=== PATIENT | male | born 1965 | race African-American/Black ===

== ENCOUNTER → 2016-12-12 | Emergency (ER) | payer OTHER ==
[~2016-12-12] MED LIST: OXYCODONE/APAP 5/325MG COMBO TABLET ONE; OXYCODONE/APAP 5/325MG COMBO TABLET PO ONE; SODIUM CHLORIDE 500 ML IV STA; oxyCODONE HCL 5 MG TABLET ONE; oxyCODONE HCL 5 MG TABLET PO ONE
[2016-12-12 20:19] VITALS: BMI 33.9
--- NOTE | 2016-12-12 21:35 | PDOC ---
History of Present Illness - General Chief Complaint: Injury Stated Complaint: RT ANKLE INJURY Time Seen by Provider: 12/12/16 20:29 History Source: Patient, Significant Other Exam Limitations: No Limitations - History of Present Illness Initial Comments: 12/12/16 21:29 51yo Male patient w/ PmHx: HTN, DM, BPH, Chronic back pain, Sleep Apnea, Syncope , presents to ED c/o fall, head injury, right ankle pain. Patient states he ascended 3 flights of stairs to use a friends bathroom, when he got to the top of the stairs he passed out and fell. Patient c/o head injury and right ankle pain with swelling. He states this was not the first time "passing out" and that his doctors are aware. He has had a full cardiac work-up and was told his heart is weak per patient. He denies CP, Abd pain, Acute back pain, n/v/d, diff breathing, fever, confusion, disorientation, seizures or any other complaints at this time. Occurred: reports: just prior to arrival Severity: reports: moderate Pain Location: reports: head, lower extremity Method of Injury: Yes: fall Modifying Factors: improves with: pain medication, rest Loss of Consciousness: brief (seconds) Associated Symptoms (Fall): shortness of breath Past History - Travel Traveled outside of the country in the last 30 days: No Close contact w/someone who was outside of country & ill: No - Past Medical History Allergies/Adverse Reactions: Allergies Allergy/AdvReac Type Severity Reaction Status Date / Time No Known Allergies Allergy Verified 12/12/16 20:13 Home Medications: Ambulatory Orders Albuterol Sulfate [Proair Respiclick] 90 mcg IH DAILY 12/12/16 Amlodipine Besylate [Norvasc -] 10 mg PO DAILY 12/12/16 Aspirin [ASA -] 81 mg PO DAILY 12/12/16 Atorvastatin Ca [Lipitor] 10 mg PO HS 12/12/16 Budesonide/Formeterol Fumarate [SYMBICORT 160/4.5mcg -] 1 inh PO DAILY 12/12/16 Enalapril Maleate [Vasotec] 20 mg PO DAILY 12/12/16 Ibuprofen 800 mg PO Q8H PRN #15 tablet 12/12/16 Insulin Glargine,Hum.rec.anlog [Lantus Solostar PEN (NF)] 10 units SQ AM Metoprolol Succinate [Toprol Xl -] 25 mg PO BID 12/12/16 Oxycodone HCl 5 mg PO Q8H PRN #12 tablet MDD 3 tabs 12/12/16 Oxycodone HCl/Acetaminophen [Percocet 10-325 mg Tablet] 1 each PO Q6H PRN Tamsulosin HCl [Flomax] 0.4 mg PO DAILY 12/12/16 COPD: Yes Diabetes: Yes Disorders: (kidney disease) HTN: Yes Hypercholesterolemia: Yes - Immunization History Immunization Up to Date: Yes - Psycho/Social/Smoking Cessation Hx Suicidal Ideation: No Smoking History: Current every day smoker Have you smoked in the past 12 months: Yes Number of Cigarettes Smoked Daily: 20 Information on smoking cessation initiated: No Hx Alcohol Use: No Drug/Substance Use Hx: No Substance Use Type: None Trauma Specific PMHX - Complaint Specific PMHX Arthritis: No Back Injury: No Neck Injury: No Hx Sacro Iliac Joint Dysfunction: No Review of Systems - Review of Systems Able to Perform ROS?: Yes Is the patient limited Sammarinese proficient: No Constitutional: No: Chills, Fever Respiratory: Yes: Shortness of Breath, SOB with Exertion. No: Orthopnea, SOB at Rest, Stridor, Wheezing, Hemoptysis Cardiac (ROS): Yes: Syncope. No: Chest Pain, Edema, Lightheadedness, Palpitations, Chest Tightness ABD/GI: Yes: Abdominal Distended, Constipated. No: Diarrhea, Nausea, Poor Appetite, Poor Fluid Intake, Rectal Bleeding, Vomiting, Abdominal cramping : No: Dysuria, Flank Pain, Hematuria Musculoskeletal: Yes: Back Pain (Chronic), Joint Pain, Joint Swelling. No: Neck Pain Integumentary: Yes: Lumps (Hematoma to scalp). No: Bruising, Erythema, Rash Neurological: No: Headache, Seizure, Weakness, Dizziness All Other Systems: Reviewed and Negative *Physical Exam - Vital Signs Last Vital Signs Temp Pulse Resp BP Pulse Ox 98.2 F 57 L 18 129/89 97 12/12/16 20:11 12/12/16 20:11 12/12/16 20:11 12/12/16 20:11 12/12/16 20:11 - Physical Exam General Appearance: Yes: Nourished, Appropriately Dressed. No: Apparent Distress, Mild Distress, Moderate Distress, Severe Distress HEENT: positive: EOMI, LM, Normal ENT Inspection, Normal Voice, Symmetrical, TMs Normal, Pharynx Normal. negative: Pharyngeal Erythema, Tonsillar Exudate, Tonsillar Erythema, Nasal Congestion, Rhinorrhea, Sinus Tenderness, TM Bulging, TM Dull, TM Erythema, Thrush Neck: positive: Trachea midline, Supple. negative: Stridor, Lymphadenopathy (R) , Lymphadenopathy (L), Tender lateral, Tender midline Respiratory/Chest: positive: Lungs Clear, Normal Breath Sounds. negative: Chest Tender, Respiratory Distress, Accessory Muscle Use, Labored Respiration, Rapid RR, Rhonchi, Stridor, Wheezing Cardiovascular: positive: Bradycardia. negative: Edema, Murmur Gastrointestinal/Abdominal: positive: Normal Bowel Sounds, Soft, Distended. negative: Guarding, Rebound, Tenderness Musculoskeletal: positive: Normal Inspection. negative: CVA Tenderness, Vertebral Tenderness Extremity: positive: Normal Capillary Refill, Normal Range of Motion, Tender ( Right ankle/foot), Swelling. negative: Normal Inspection Integumentary: positive: Normal Color, Dry, Warm Neurologic: positive: experimental psychologist II-XII NML intact, Fully Oriented, Alert, Normal Mood/ Affect, Normal Response, Motor Strength 5/5 Procedures - Splinting Splint Location: Right: Ankle Pre-Proc Neuro Vasc Exam: normal Hand-Made Type: orthoglass Splint Type: No: Short Leg (Rt Ankle stirrup) Post-Proc Neuro Vasc Exam: normal Marino Bandage: 4" Sling: No Complications: No Post splint xray: No Good repositioning: No Progress: 12/12/16 23:47 Patient tolerated procedure well. ED Treatment Course - LABORATORY CBC & Chemistry Diagram: 12/12/16 21:05 12/12/16 21:45 - RADIOLOGY Radiology Studies Ordered: Category Date Time Status HEAD CT WITHOUT CONTRAST [CT] Stat CT Scan 12/12/16 21:06 Ordered ANKLE & FOOT-RIGHT* [RAD] Stat Radiology 12/12/16 21:06 Ordered CHEST PA & LAT [RAD] Stat Radiology 12/12/16 21:06 Ordered *DC/Admit/Observation/Transfer Diagnosis at time of Disposition: Ankle fracture, right Qualifiers: Encounter type: initial encounter Fracture type: closed Qualified Code(s): S82.891A - Other fracture of right lower leg, initial encounter for closed fracture Head injury Qualifiers: Encounter type: initial encounter Qualified Code(s): S09.90XA - Unspecified injury of head, initial encounter Fall Qualifiers: Encounter type: initial encounter Qualified Code(s): W19.XXXA - Unspecified fall, initial encounter - Discharge Dispostion Disposition: HOME Condition at time of disposition: Stable Admit: No - Prescriptions Prescriptions: Ibuprofen 800 mg PO Q8H PRN #15 tablet PRN Reason: Mild Pain Oxycodone HCl 5 mg PO Q8H PRN #12 tablet MDD 3 tabs PRN Reason: Severe Pain - Referrals Referrals: Keaton Agudelo MD [Staff Physician] - - Patient Instructions Printed Discharge Instructions: DI for Ankle Fracture, DI for Closed Head Injury, How to Prevent Falls Additional Instructions: FOLLOW UP WITH DR. AGUDELO (ORTHOPEDIST) THIS WEEK. CALL TO SCHEDULE APPOINTMENT. TAKE MEDICATIONS PRESCRIBED. DO NOT DRIVE, DRINK ALCOHOL OR OPERATE HEAVY MACHINERY WHILE TAKING OXYCODONE. KEEP SPLINT APPLIED UNTIL SEEN BY SPECIALIST. APPLY COLD COMPRESS TO AFFECTED AREA EVERY 3-4 HOURS ON AND OFF FOR 10 MIN. Print Language: STATELESS - Post Discharge Activity Work/School Note: Back to Work
--- NOTE | 2016-12-12 21:54 | PDOC ---
*Physical Exam - Vital Signs Last Vital Signs Temp Pulse Resp BP Pulse Ox 98.2 F 57 L 18 129/89 97 12/12/16 20:11 12/12/16 20:11 12/12/16 20:11 12/12/16 20:11 12/12/16 21:05 ED Treatment Course - LABORATORY CBC & Chemistry Diagram: 12/12/16 21:05 12/12/16 21:45 Medical Decision Making - Medical Decision Making 12/12/16 21:53 agree with care from SLADE Powell *DC/Admit/Observation/Transfer Diagnosis at time of Disposition: Ankle fracture, right, Head injury, Fall - Prescriptions Prescriptions: Ibuprofen 800 mg PO Q8H PRN #15 tablet PRN Reason: Mild Pain Oxycodone HCl 5 mg PO Q8H PRN #12 tablet MDD 3 tabs PRN Reason: Severe Pain - Referrals Referrals: Keaton Agudelo MD [Staff Physician] - - Patient Instructions Printed Discharge Instructions: DI for Ankle Fracture, How to Prevent Falls, DI for Closed Head Injury Additional Instructions: FOLLOW UP WITH DR. AGUDELO (ORTHOPEDIST) THIS WEEK. CALL TO SCHEDULE APPOINTMENT. TAKE MEDICATIONS PRESCRIBED. DO NOT DRIVE, DRINK ALCOHOL OR OPERATE HEAVY MACHINERY WHILE TAKING OXYCODONE. KEEP SPLINT APPLIED UNTIL SEEN BY SPECIALIST. APPLY COLD COMPRESS TO AFFECTED AREA EVERY 3-4 HOURS ON AND OFF FOR 10 MIN. Print Language: ITALIAN - Post Discharge Activity Work/School Note: Back to Work
[2016-12-12 22:09] LABS: BASOPHIL 0.8 % (0-2.0); EOSINOPHIL 3.9 % (0-4.5); MCH 29.1 pg (25.7-33.7); MEAN CELL VOLUME 85.5 fl (80-96); NEUTROPHILS 66.3 % (42.8-82.8); PLATELET COUNT 205 K/MM3 (134-434); RDW 13.5 % (11.9-15.9); WHITE BLOOD COUNT 8.6 K/mm3 (4.0-10.0)
[2016-12-12 22:09] LABS: INR 1.06 (0.82-1.09); PROTHROMBIN TIME (PATIENT) 11.7 SEC (9.98-11.88)
[2016-12-12 22:11] LABS: URINE APPEARANCE CLEAR; URINE BILIRUBIN NEGATIVE (NEGATIVE); URINE BLOOD NEGATIVE (NEGATIVE); URINE COLOR LTYELLOW; URINE GLUCOSE (UA) NEGATIVE (NEGATIVE); URINE KETONE NEGATIVE (NEGATIVE); URINE NITRITE NEGATIVE (NEGATIVE); URINE PROTEIN NEGATIVE (NEGATIVE); URINE UROBILINOGEN NEGATIVE E.U./dl (0.2-1.0)
[2016-12-12 22:12] LABS: ACTIVATED PTT 30.2 SECONDS (26.9-34.4)
[2016-12-12 22:25] LABS: URINE LEUK ESTERASE 1+ (NEGATIVE)
[2016-12-12 22:27] LABS: URINE RBC 1 /hpf (0-3); URINE WBC 14 /hpf (3-5)
[2016-12-12 22:54] LABS: ALBUMIN 3.6 g/dl (3.4-5.0); ANION GAP 9 (8-16); BILIRUBIN,TOTAL 0.6 mg/dL (0.2-1.0); CALCIUM 8.5 mg/dL (8.5-10.1); CO2 26 mmol/L (21-32); CREATININE 1.4 mg/dL (0.7-1.3); GLUCOSE,RANDOM 165 mg/dL (74-106); SGPT/ALT 39 U/L (12-78); TOT PROT 6.5 g/dl (6.4-8.2)
[2016-12-12 22:56] LABS: ALK PHOS 88 U/L (45-117); TROPONIN I < 0.02 ng/ml (0.00-0.05)
[2016-12-12 22:58] LABS: SGOT/AST 18 U/L (15-37)
[2016-12-13 00:35] VITALS: BP 121/73; PULSE 59; TEMP 98.3
--- NOTE | 2016-12-14 11:23 | EKG ---
Test Reason : Blood Pressure : / mmHG Vent. Rate : 062 BPM Atrial Rate : 062 BPM P-R Int : 166 ms QRS Dur : 092 ms QT Int : 396 ms P-R-T Axes : 060 036 061 degrees QTc Int : 401 ms NORMAL SINUS RHYTHM NORMAL ECG NO PREVIOUS ECGS AVAILABLE Confirmed by PARKER RICH MD ([id number]) on 12/14/2016 11:22:41 AM Referred By: Confirmed By:PARKER RICH MD
== END | disposition home or self-care (01) ==
LOC: JER 20:07
PROC: 3E0337Z Introduction of Electrolytic and Water Balance Substance into Peripheral Vein, Percutaneous Approach (ICD-10-PCS; principal; 2016-12-12)
PROC: 2W3QX1Z Immobilization of Right Lower Leg using Splint (ICD-10-PCS; 2016-12-12)
DX: S82.891A Other fracture of right lower leg, initial encounter for closed fracture (principal); S09.8XXA Other specified injuries of head, initial encounter; W10.8XXA Fall (on) (from) other stairs and steps, initial encounter; Y93.89 Activity, other specified; Y92.098 Other place in other non-institutional residence as the place of occurrence of the external cause; I10 Essential (primary) hypertension; E11.9 Type 2 diabetes mellitus without complications; Z79.4 Long term (current) use of insulin; N40.0 Benign prostatic hyperplasia without lower urinary tract symptoms; M54.89 Other dorsalgia; G47.39 Other sleep apnea; F51.8 Other sleep disorders not due to a substance or known physiological condition
CPT/HCPCS: 29515; 36415; 70450-TC; 71020-TC; 72125-TC; 73610-TC-RT; 73630-TC-RT; 80053; 81003; 81015; 82550; 82553; 84484; 85025; 85610; 85730; 93005; 93010; 96360; 99283-25

== ENCOUNTER 2018-06-02 07:52 | Inpatient (IN) | payer OTHER ==
--- NOTE | 2018-06-02 07:57 | PDOC ---
Attending Attestation - Resident Resident Name: DesmondGage - ED Attending Attestation I have performed the following: I have examined & evaluated the patient, The case was reviewed & discussed with the resident, I agree w/resident's findings & plan, Exceptions are as noted - HPI HPI: 06/02/18 08:50 52y M history of diabetes, hypertension, CAD, CKD, hyperlipidemia presents with a complaint of syncope. Patient states this morning he syncopized - does not recall the circumstances prior notes that he has had frequent episodes of syncope the past year. Patient notes that sometimes he does feel lightheaded, a flushing sensation in his body prior to syncopized in. He states that he has had a workup in the past including Holter monitor. he denies any chest pain, nausea, vomiting, shortness of breath, abdominal pain, back pain, neck pain, numbness, tingling, weakness . currently endorses a headache where he hit his head. The patient was placed on monitoring specialist upon arrival, during his evaluation. Had a brief run of nonsustained V. tach (27 beats) - he also appears to have A. fib on his EKG which is new. he was given amiodarone 150mg he was placed on pacer pads/defibrillator will obtain CT head differential includes metabolic derangement, intrinsic cardiac disease [facility] - Physicial Exam PE: 06/02/18 10:00 GENERAL: The patient is awake, alert, and fully oriented, Nontoxic - in no acute distress. HEAD: Normocephalic, mild diffuse tenderness to the posterior scalp EYES: extraocular movements intact, sclera anicteric, conjunctiva clear. ENT: Normal voice, Moist mucous membranes. NECK: Normal range of motion, supple LUNGS: Breath sounds equal, clear to auscultation bilaterally. No wheezes, no rhonchi, no rales. HEART: Regular rate and rhythm, normal S1 and S2 without murmur, rub or gallop. ABDOMEN: Soft, nontender, normoactive bowel sounds. No guarding, no rebound. . No CVA tenderness EXTREMITIES: Normal range of motion, no edema. No clubbing or cyanosis. No cords, erythema, or tenderness. NEUROLOGICAL: No facial assymetry, Normal speech, PSYCH: Normal mood, normal affect. SKIN: Warm, Dry, normal turgor, - Critical Care Time Total Critical Care Time: 45 Critical Care Statement: The care of this patient involved high complexity decision making to prevent further life threatening deterioration of the patient 's condition and/or to evaluate & treat vital organ system(s) failure or risk of failure. - Medical Decision Making 06/02/18 11:40 The patient's blood work was reviewed it is unremarkable, the patient's CT head negative for acute process. Has been stable since receiving amiodarone no further episodes of nonsustained VT This was discussed with cardiology was recommended and metoprolol recommended not starting amiodarone drip. Will make the patient for further management of VT. Heart Score/ECG Review - ECG Impressions Comment:: 06/02/18 09:07 Twelve-lead EKG was performed and reviewed by me. EKG performed June 02 7:57 Irregularly irregular, rate of [address] changes suggestive of acute ischemia Impression: Atrial fibrillation
[2018-06-02 08:35] LABS: BASO % 0.8 % (0-2.0); EOS % 2.9 % (0-4.5); HEMATOCRIT 41.3 % (35.4-49); HEMOGLOBIN 14.6 GM/dL (11.7-16.9); LYMPH % 16.6 % (8-40); MCH 29.8 pg (25.7-33.7); MCHC 35.3 g/dl (32.0-35.9); MEAN CELL VOLUME 84.2 fl (80-96); MEAN PLT VOLUME 8.2 fl (7.5-11.1); NEUT % 68.7 % (42.8-82.8); PLATELET COUNT 238 K/MM3 (134-434); RDW 13.5 % (11.9-15.9); WHITE BLOOD COUNT 9.1 K/mm3 (4.0-10.0)
[2018-06-02 08:36] LABS: URINE APPEARANCE CLEAR; URINE BILIRUBIN NEGATIVE (<2.0 mg/dL); URINE COLOR STRAW; URINE GLUCOSE (UA) 2+ (NEGATIVE); URINE KETONE NEGATIVE (NEGATIVE); URINE LEUK ESTERASE NEGATIVE (NEGATIVE); URINE NITRITE NEGATIVE (NEGATIVE); URINE PROTEIN NEGATIVE (NEGATIVE); URINE UROBILINOGEN NEGATIVE mg/dL (0.2-1.0)
[2018-06-02 08:43] LABS: INR 0.98 (0.83-1.09); PROTHROMBIN TIME (PATIENT) 11.6 SEC (9.7-13.0)
[2018-06-02] MEDS ORDERED: AMIODARONE HCL 150 MG/3 ML VIAL IVPUSH ONE (08:44)
[2018-06-02 08:45] VITALS: BMI 33.9
[2018-06-02] MEDS ORDERED: AMIODARONE HCL 150 MG/3 ML VIAL ONE (08:47)
[2018-06-02 08:54] LABS: ALBUMIN 3.5 g/dl (3.4-5.0); ALK PHOS 115 U/L (45-117); ANION GAP 8 MMOL/L (8-16); BILIRUBIN,TOTAL 0.4 mg/dL (0.2-1); BLOOD UREA NITROGEN 17 mg/dL (7-18); CALCIUM 8.3 mg/dL (8.5-10.1); CHLORIDE 102 mmol/L (98-107); CO2 23 mmol/L (21-32); CREATININE 1.3 mg/dL (0.55-1.3); GLUCOSE,RANDOM 240 mg/dL (74-106); POTASSIUM 4.4 mmol/L (3.5-5.1); SGOT/AST 18 U/L (15-37); SGPT/ALT 27 U/L (13-61); SODIUM 133 mmol/L (136-145); TOT PROT 6.8 g/dl (6.4-8.2)
--- NOTE | 2018-06-02 08:54 | PDOC ---
History of Present Illness - General Stated Complaint: IRREGULAR HEART BEAT Time Seen by Provider: 06/02/18 07:53 - History of Present Illness Initial Comments: 06/02/18 08:23 52 yo M with h/o HTN, DM, HLD, CKD-stage II, CAD, ND (2001), BIBA with syncope and palpitations. Patient reports multiple episodes of LOC with no identifiable triggers or alleviators x 1 week. BIBA this AM following syncopal event in hallway outside apartment room in hallway. Does not recall events prior to LOC. States that his found him on ground. Reports multiple unprovoked episodes of syncope this year. Now with posterior headache. + increased SOB x 1 week, with increased nocturnal SOB, and exertional SOB. Also endorses intermittent "heart fluttering," and palpitations randomly x 1 year, with no identifiable triggers, typically lasting seconds. Does not recall name of home care chaplain he has seen 8 months ago. Reports h/o holter monitor testing, but does not recall results. Patient denies vision change, tinnitus, hearing loss, neck stiffness/neck pain, palpitations, N/V, F/C, CP, urinary complaints, abdominal pain, diarrhea, constipation, lightheadedness, weakness, sensory changes. PMHx: as noted above. ND 2001. Denies stent placement, CABG. Denies h/o PE/DVT. ROS: as noted SHx: IVDA Allergies: NKDA Past History - Past Medical History Allergies/Adverse Reactions: Allergies Allergy/AdvReac Type Severity Reaction Status Date / Time No Known Allergies Allergy Verified 06/02/18 08:34 Home Medications: Ambulatory Orders Albuterol Sulfate Inhaler - [Ventolin Hfa Inhaler -] 1 - 2 inh PO Q4H PRN Amlodipine Besylate [Norvasc -] 10 mg PO DAILY 06/02/18 Aspirin [ASA -] 81 mg PO DAILY 06/02/18 Atorvastatin Calcium [Lipitor] 10 mg PO DAILY 06/02/18 Budesonide/Formeterol Fumarate [SYMBICORT 80/4.5mcg -] 1 inh PO BID 06/02/18 Cholecalciferol (Vitamin D3) [Vitamin D3 -] 50,000 unit PO WEEKLY 06/02/18 Docusate Sodium [Colace -] 100 mg PO BID 06/02/18 Enalapril Maleate [Vasotec -] 10 mg PO BID 06/02/18 Insulin Degludec [Tresiba Flextouch U-100] 10 unit SQ HS 06/02/18 Metoprolol Tartrate [Lopressor] 50 mg PO BID 06/02/18 Oxycodone HCl/Acetaminophen [Endocet 10-325 mg Tablet] 1 each PO BID 06/02/18 Polyethylene Glycol 3350 17 gm PO DAILY 06/02/18 Sennosides [Senna] 1 tab PO HS 06/02/18 Tamsulosin HCl [Flomax] 0.4 mg PO HS 06/02/18 Tizanidine HCl 2 mg PO BID 06/02/18 Zolpidem Tartrate [Ambien] 10 mg PO HS 06/02/18 COPD: Yes Diabetes: Yes Disorders: (kidney disease) HTN: Yes Hypercholesterolemia: Yes - Immunization History Immunization Up to Date: Yes - Suicide/Smoking/Psychosocial Hx Smoking History: Current every day smoker Have you smoked in the past 12 months: Yes Number of Cigarettes Smoked Daily: 20 Hx Alcohol Use: No Drug/Substance Use Hx: No Substance Use Type: None Review of Systems - Review of Systems Comments:: 06/02/18 09:08 GENERAL/CONSTITUTIONAL: No fever or chills. No weakness. HEAD, EYES, EARS, NOSE AND THROAT: No change in vision. No ear pain or discharge. No sore throat. CARDIOVASCULAR: + palpitations. No chest pain or shortness of breath RESPIRATORY: No cough, wheezing, or hemoptysis. GASTROINTESTINAL: No nausea, vomiting, diarrhea or constipation. GENITOURINARY: No dysuria, frequency, or change in urination. MUSCULOSKELETAL: No joint or muscle swelling or pain. No neck or back pain. SKIN: No rash NEUROLOGIC: + Lightheadedness. No headache, vertigo, loss of consciousness, or change in strength/sensation. ENDOCRINE: No increased thirst. No abnormal weight change HEMATOLOGIC/LYMPHATIC: No anemia, easy bleeding, or history of blood clots. ALLERGIC/IMMUNOLOGIC: No hives or skin allergy. *Physical Exam - Physical Exam Comments: 06/02/18 09:17 GENERAL: Awake, alert, and fully oriented, in no acute distress HEAD: + Right sided occipital scalp hematoma, with absent lac. normocephalic EYES: PERRLA, EOMI, sclera anicteric, conjunctiva clear ENT: Auricles normal inspection, hearing grossly normal, nares patent, oropharynx clear without exudates. Moist mucosa NECK: Normal ROM, supple, no lymphadenopathy, JVD, or masses LUNGS: No distress, speaks full sentences, clear to auscultation bilaterally HEART: Regular rate and irregular rhythm, normal S1 and S2, no murmurs, rubs or gallops, peripheral pulses normal and equal bilaterally. ABDOMEN: Soft, nontender, normoactive bowel sounds. No guarding, no rebound. No masses EXTREMITIES : Normal inspection, Normal range of motion, no edema. No clubbing or cyanosis. NEUROLOGICAL: Cranial nerves II through XII grossly intact. Normal speech, normal gait, no focal sensorimotor deficits SKIN: Warm, Dry, normal turgor, no rashes or lesions noted Heart Score/ECG Review - History History: Slightly suspicious - Electrocardiogram EKG: Non specific repolarization disturbance - Age Age: 45-65 - Risk Factors Risk Factors Heart Score: Yes Hx Hypercholesterolemia, Yes Hx Hypertension, Yes Hx Diabetes, Yes Positive family hx of cardiac disease, Yes Hx Obesity Based on the list above the patient has:: >/=3 risk factors or Hx atherosclerotic disease - Troponin Troponin: </= normal limit - Score Heart Score - Total: 4 ED Treatment Course - LABORATORY CBC & Chemistry Diagram: 06/02/18 08:20 06/02/18 08:20 - RADIOLOGY Radiology Studies Ordered: Category Date Time Status CXRPORT [CHEST X-RAY PORTABLE*] [RAD] Stat Radiology 06/02/18 07:54 Ordered Medical Decision Making - Medical Decision Making 06/02/18 08:58 52 yo M with h/o HTN, DM, HLD, CKD-stage II, CAD, ND (2001), BIBA with syncope and palpitations. VSS, AF, A&Ox3, GCS 15. Will Cardio exam with irregular rhythm , physical exam otherwise unremarkable. CTH r/o intracranial hemorrhage, hematoma, skull frx. C-spine neg per NEXUS.No evidence of basilar skull fracture. Will assess for cardiac dysarrtyhmias, hypoglycemia, electrolyte abnml , metabolic and toxic derangements, acid-base disturbances, and infection. Ed Course: CBC,CMP, CARDIAC SD. BNP EKG, CXR EKG: A-fib, HR absent JOSE, STD. N Prior EKG ( 12-12-16) with NSR., rate 62. Patient with run of stable, asymptomatic, monomorphic V-tach 08:27 AM for 27 beats. Amiodarone 150 mg heart score 4 06/02/18 09:[address] Ruiz cardiology transition specialist CBC: Unremarkable 06/02/18 09:03 BUN/CR: 17/1.3 K+ : 4.4 Discussed patient with cardiology, . will give Metoprolol 20 mg. 06/02/18 09:33 Trop: Neg 06/02/18 09:34 BNP: 308 06/02/18 10:03 ChadsVasc2: 3 06/02/18 10:23 CXR: No acute pathology 06/02/18 11:[address] Cormier. Admit tele. *DC/Admit/Observation/Transfer Diagnosis at time of Disposition: V-tach, Atrial fibrillation, new onset, Syncope and collapse - Discharge Dispostion Decision to Admit order: Yes - Referrals - Patient Instructions - Post Discharge Activity
[2018-06-02 09:06] LABS: N-TERMINAL BNP 308.2 pg/ml (5-125)
[2018-06-02] MEDS ORDERED: ACETAMINOPHEN INJECTION 100 ML IVPB ONE (09:15)
[2018-06-02] MEDS ORDERED: METOPROLOL TARTRATE 25 MG TABLET (FP) PO ONE (09:16)
[2018-06-02] MEDS ORDERED: METOPROLOL TARTRATE 50 MG TABLET (FP) PO ONE (09:29)
[2018-06-02] MEDS ORDERED: METOPROLOL TARTRATE 50 MG TABLET (FP) ONE (09:31)
--- NOTE | 2018-06-02 10:09 | CON.CARD ---
Consult Consult Specialty:: Cardiology Referred by:: Obed Thornton MD Reason for Consultation:: Monomorphic VT, afib, syncope - History of Present Illness Chief Complaint: Syncope History of Present Illness: 52y M history of diabetes, hypertension, CAD s/p ID 2001, CKD II, hyperlipidemia , fam h/o premature CAD presents with a complaint of syncope, MARTIN and palpitations, reports previous episodes this year, this time preceded by lightheaded, a flushing sensation in his body prior to syncope. He states that he has had a workup in the past including Holter monitor. He reports increased MARTIN and orthopnea, denies any chest pain, nausea, vomiting, PND or LE edema. The patient was placed on groundwater monitoring technician upon arrival, during his evaluation. Had a brief run of monomorphic V. tach (27 beats) - he also appears to have A. fib on his EKG which is new. he was given amiodarone 150mg, reports medication compliance. - History Source History Provided By: Patient Limitations to Obtaining History: No Limitations - Alcohol/Substance Use Hx Alcohol Use: No - Smoking History Smoking history: Current every day smoker Have you smoked in the past 12 months: Yes Aproximately how many cigarettes per day: 20 Home Medications - Allergies Allergies/Adverse Reactions: Allergies Allergy/AdvReac Type Severity Reaction Status Date / Time No Known Allergies Allergy Verified 06/02/18 08:34 - Home Medications Home Medications: Ambulatory Orders Albuterol Sulfate Inhaler - [Ventolin Hfa Inhaler -] 1 - 2 inh PO Q4H PRN Amlodipine Besylate [Norvasc -] 10 mg PO DAILY 06/02/18 Aspirin [ASA -] 81 mg PO DAILY 06/02/18 Atorvastatin Calcium [Lipitor] 10 mg PO DAILY 06/02/18 Budesonide/Formeterol Fumarate [SYMBICORT 80/4.5mcg -] 1 inh PO BID 06/02/18 Cholecalciferol (Vitamin D3) [Vitamin D3 -] 50,000 unit PO WEEKLY 06/02/18 Docusate Sodium [Colace -] 100 mg PO BID 06/02/18 Enalapril Maleate [Vasotec -] 10 mg PO BID 06/02/18 Insulin Degludec [Tresiba Flextouch U-100] 10 unit SQ HS 06/02/18 Metoprolol Tartrate [Lopressor] 50 mg PO BID 06/02/18 Oxycodone HCl/Acetaminophen [Endocet 10-325 mg Tablet] 1 each PO BID 06/02/18 Polyethylene Glycol 3350 17 gm PO DAILY 06/02/18 Sennosides [Senna] 1 tab PO HS 06/02/18 Tamsulosin HCl [Flomax] 0.4 mg PO HS 06/02/18 Tizanidine HCl 2 mg PO BID 06/02/18 Zolpidem Tartrate [Ambien] 10 mg PO HS 06/02/18 Family Disease History - Family Disease History Family Disease History: Heart Disease: Brother (CABG in 30s) Review of Systems - Review of Systems Cardiovascular: reports: Palpitations, Shortness of Breath Vital Signs: Vital Signs Temperature 98.5 F 06/02/18 07:53 Pulse Rate 60 06/02/18 09:38 Respiratory Rate 17 06/02/18 09:38 Blood Pressure 135/84 06/02/18 09:38 O2 Sat by Pulse Oximetry (%) 96 06/02/18 09:38 Constitutional: Yes: No Distress, Calm Neck: Yes: Supple Respiratory: Yes: Regular, CTA Bilaterally Gastrointestinal: Yes: Normal Bowel Sounds, Soft Cardiovascular: Yes: Regular Rate and Rhythm JVD: No Carotid Bruit: No Heart Sounds: Yes: S1, S2 Edema: No - Other Data Labs, Other Data: CBC, BMP 06/02/18 08:20 06/02/18 08:20 INR, PTT INR 0.98 (0.83-1.09) 06/02/18 08:20 Troponin, BNP 06/02/18 08:20 Troponin I < 0.02 B-Natriuretic Peptide 308.2 H Troponin, BNP 06/02/18 08:20 Troponin I < 0.02 B-Natriuretic Peptide 308.2 H Afib @ 69 QTc 410 msec Tele: 27 beat Monomorphic VT Imaging - Results Chest X-ray: Report Reviewed (NAD) Problem List - Problems (1) Coronary artery disease Code(s): I25.10 - ATHSCL HEART DISEASE OF [place] CORONARY ARTERY W/O ANG PCTRS Qualifiers: Coronary Disease-Associated Artery/Lesion type: [place] artery [place] vs. transplanted heart: [place] heart Associated angina: without angina Qualified Code(s): I25.10 - Atherosclerotic heart disease of [place] coronary artery without angina pectoris (2) Old myocardial infarction Code(s): I25.2 - OLD MYOCARDIAL INFARCTION (3) Atrial fibrillation, new onset Code(s): I48.91 - UNSPECIFIED ATRIAL FIBRILLATION (4) Syncope and collapse Code(s): R55 - SYNCOPE AND COLLAPSE (5) V-tach Code(s): I47.2 - VENTRICULAR TACHYCARDIA Assessment/Plan 1. Recurrent syncope, etiology to be determined 2. Newly diagnosed afib [id number] 3. CAD h/o ID 4. Monomorphic VT suspect scar VT 5. HTN heart disease 6. Hyperlipidemia 7. Type 2 DM 8. CKD II P:1. Ruling out for ID, echo to assess ventricular and valve fxn, check orthostatic VS, if LVEF<35% will be candidate for ICD 2. Continue Lipitor 10 qd, vasotec 10 bid, Lopressor 50 bid 3. Change ASA to Eliquis 5 bid given elevated risk score 4. Further recommendations to follow, thank you for consultative opportunity
[2018-06-02] MEDS ORDERED: ACETAMINOPHEN 1000 MG/100 ML VIAL (NON FORMULARY) IVPB ONE (10:29)
--- NOTE | 2018-06-02 12:10 | EKG ---
Test Reason : Blood Pressure : / mmHG Vent. Rate : 071 BPM Atrial Rate : 192 BPM P-R Int : 000 ms QRS Dur : 090 ms QT Int : 378 ms P-R-T Axes : 000 037 059 degrees QTc Int : 410 ms ATRIAL FIBRILLATION ABNORMAL ECG WHEN COMPARED WITH ECG OF 12-DEC-2016 21:03, ATRIAL FIBRILLATION HAS REPLACED SINUS RHYTHM Confirmed by CINDY PEDERSON MD ([id number]) on 06/02/2018 12:10:18 PM Referred By: Confirmed By:CINDY PEDERSON MD
--- NOTE | 2018-06-02 13:20 | HP ---
CHIEF COMPLAINT: Syncope PCP: Dr Va Galindo Name Plate Stamping Machine Operator: Dr Karishma Wright- [facility] HISTORY OF PRESENT ILLNESS: Pt is a pleasant 52 y/o gentleman with a significant past medical history of DM , HLD, CKD Stage II, and [place] (2001) who presented to [facility] after experiencing a syncopal episode this am. Per pt and carlose at bedside, pt was found in the hallway of his house by heaven. Pt endorses that he has experienced loss of consciousness numerous times this past year which are usually preceded by palpitations and lightheadedness though this recent episode was not. Sometimes these episodes are followed by urinary/bowel incontinence. Pt states when he begins to feel lightheaded and experience palpitations, he squats or sits down and this seems to assuage his symptoms. Furthermore, pt reports that sometimes his episodes of syncope are preceded by convulsions witnessed by bystanders. Endorses increasing SOB x 1 week and cough productive of whitish, foamy sputum. States he sometimes wakes up at night gasping for air , uses 2 pillows to sleep. In addition, he endorses a recent sinus infection productive of green mucous. Denies nausea, vomiting, or fever. ER course was notable for: (1) CT C-Spine--> C3-C4 central Canal stenosis suggestive of idiopathic skeletal hyperostosis. No fracture seen. (2) EKG--> AFIB @ 69 QTc 410 msec, Tele 27 beat monomorphic VT (3) Given amiodarone 150mg in ED Recent Travel: PAST MEDICAL HISTORY: per HPI. Cardiac Cath in 2013 " Damage Right Chamber?" PAST SURGICAL HISTORY: incarcerated Hernia Repair. Social History: Smokin Pack per day Alcohol: Denies Drugs: Denies Family History: Father--> [place] in 60's, Brother M.I in 40's Allergies denies No Known Allergies Allergy (Verified 06/02/18 08:34) HOME MEDICATIONS: Home Medications Medication Instructions Recorded Albuterol Sulfate Inhaler - 1 - 2 inh PO Q4H PRN 06/02/18 [Ventolin Hfa Inhaler -] Amlodipine Besylate [Norvasc -] 10 mg PO DAILY 06/02/18 Aspirin [ASA -] 81 mg PO DAILY 06/02/18 Atorvastatin Calcium [Lipitor] 10 mg PO DAILY 06/02/18 Budesonide/Formeterol Fumarate 1 inh PO BID 06/02/18 [SYMBICORT 80/4.5mcg -] Cholecalciferol (Vitamin D3) 50,000 unit PO WEEKLY 06/02/18 [Vitamin D3 -] Docusate Sodium [Colace -] 100 mg PO BID 06/02/18 Enalapril Maleate [Vasotec -] 10 mg PO BID 06/02/18 Insulin Degludec [Tresiba 10 unit SQ HS 06/02/18 Flextouch U-100] Metoprolol Tartrate [Lopressor] 50 mg PO BID 06/02/18 Oxycodone HCl/Acetaminophen 1 each PO BID 06/02/18 [Endocet 10-325 mg Tablet] Polyethylene Glycol 3350 17 gm PO DAILY 06/02/18 Sennosides [Senna] 1 tab PO HS 06/02/18 Tamsulosin HCl [Flomax] 0.4 mg PO HS 06/02/18 Tizanidine HCl 2 mg PO BID 06/02/18 Zolpidem Tartrate [Ambien] 10 mg PO HS 06/02/18 REVIEW OF SYSTEMS CONSTITUTIONAL: Absent: fever, chills, diaphoresis, generalized weakness, malaise, loss of appetite, weight change HEENT: PRESENT: visual changes CARDIOVASCULAR: PRESENT: syncope, palpitations, irregular heart rate, lightheadedness RESPIRATORY: PRESENT: cough, shortness of breath, dyspnea with exertion, orthopnea GASTROINTESTINAL:rusty, hemopty Absent: abdominal pain, abdominal distension, nausea, vomiting, diarrhea, constipation, melena, hematochezia GENITOURINARY: Absent: dysuria, frequency, urgency, hesitancy, hematuria, flank pain, genital pain MUSCULOSKELETAL: Absent: myalgia, arthralgia, joint swelling, back pain, neck pain SKIN: Absent: rash, itching, pallor HEMATOLOGIC/IMMUNOLOGIC: Absent: easy bleeding, easy bruising, lymphadenopathy, frequent infections ENDOCRINE: Absent: unexplained weight gain, unexplained weight loss, heat intolerance, cold intolerance NEUROLOGIC: PRESENT: headache, focal weakness, dizziness, seizure, bladder or bowel incontinence PSYCHIATRIC: PRESENT depression PHYSICAL EXAMINATION Vital Signs - 24 hr 06/02/18 06/02/18 06/02/18 07:53 08:50 09:38 Temperature 98.5 F Pulse Rate 75 Pulse Rate [ 63 60 Left Radial] Respiratory 20 21 H 17 Rate Blood Pressure 152/75 Blood Pressure 121/83 135/84 [Right Arm] O2 Sat by Pulse 100 96 96 Oximetry (%) 06/02/18 06/02/18 06/02/18 10:27 10:57 11:57 Temperature 98.1 F Pulse Rate Pulse Rate [ 64 61 59 L Left Radial] Respiratory 16 21 H 19 Rate Blood Pressure Blood Pressure 120/75 109/71 134/77 [Right Arm] O2 Sat by Pulse 98 98 98 Oximetry (%) GENERAL: NAD AAOx3 HEAD: Atraumatic Normocephalic EYES: EOMI Conjunctiva clear EARS, NOSE, THROAT: MMM NECK: Supple LUNGS:CTA B/L HEART: S1S2 No MRG appreciated ABDOMEN: NDNT No HSM MUSCULOSKELETAL: Left Upper extremity impaired ROM 2/2 mechanical injury? UPPER EXTREMITIES: Imapired mobility left upper extremity LOWER EXTREMITIES: No CCE. Onychomycosis b/l feet. Callus sole of left foot. NEUROLOGICAL: Cn 2-12 intact PSYCHIATRIC: Cooperative. Good eye contact. Appropriate mood and affect. SKIN: No rashes appreciated Laboratory Results - last 24 hr 06/02/18 06/02/18 06/02/18 08:20 08:20 08:20 WBC 9.1 RBC 4.90 Hgb 14.6 Hct 41.3 MCV 84.2 MCH 29.8 MCHC 35.3 RDW 13.5 Plt Count 238 MPV 8.2 Absolute Neuts (auto) 6.3 Neutrophils % 68.7 Lymphocytes % 16.6 Monocytes % 11.0 H Eosinophils % 2.9 Basophils % 0.8 Nucleated RBC % 0 PT with INR INR Sodium Potassium Chloride Carbon Dioxide Anion Gap BUN Creatinine Creat Clearance w eGFR Random Glucose Calcium Total Bilirubin AST ALT Alkaline Phosphatase Creatine Kinase 277 Creatine Kinase Index 0.5 CK-MB (CK-2) 1.5 Troponin I < 0.02 B-Natriuretic Peptide 308.2 H Total Protein Albumin Urine Color Straw Urine Appearance Clear Urine pH 6.0 Ur Specific [place] 1.012 Urine Protein Negative Urine Glucose (UA) 2+ H Urine Ketones Negative Urine Blood Negative Urine Nitrite Negative Urine Bilirubin Negative Urine Urobilinogen Negative Ur Leukocyte Esterase Negative 06/02/18 06/02/18 08:20 08:20 WBC RBC Hgb Hct MCV MCH MCHC RDW Plt Count MPV Absolute Neuts (auto) Neutrophils % Lymphocytes % Monocytes % Eosinophils % Basophils % Nucleated RBC % PT with INR 11.60 INR 0.98 Sodium 133 L Potassium 4.4 Chloride 102 Carbon Dioxide 23 Anion Gap 8 BUN 17 Creatinine 1.3 Creat Clearance w eGFR 57.97 Random Glucose 240 H Calcium 8.3 L Total Bilirubin 0.4 AST 18 ALT 27 Alkaline Phosphatase 115 Creatine Kinase Creatine Kinase Index CK-MB (CK-2) Troponin I B-Natriuretic Peptide Total Protein 6.8 Albumin 3.5 Urine Color Urine Appearance Urine pH Ur Specific [place] Urine Protein Urine Glucose (UA) Urine Ketones Urine Blood Urine Nitrite Urine Bilirubin Urine Urobilinogen Ur Leukocyte Esterase ASSESSMENT/PLAN: Pt is a pleasant 52 y/o gentleman with a significant past medical history of DM , HLD, CKD Stage II, and [place] (2001) who presented to [facility] after experiencing a syncopal episode this am. #Syncope 2/2 Arrhythmia? -Monomorphic V-Tach 27 Beats - Irregularly irregular rate of 69 - CT Head w/O--> No CT evidence of acute intracranial pathology.Mild bilateral nonspecific frontoparietal white matter hypodensity seen. - ECHO pending - Cardiology on board - Amiodorone 150 MG in ED -Restarted on home Metoprolol 50 MG BID -[id number]. On Eliquis 5 BID. #DM Insulin sliding Scale -Hold Tresiba #HLD Resume Atorvastatin 10 MG #CKD Avoid nsaids, Aminoglycosides, nephrotoxic agents #FEN No Fluids Monitor Electrolytes Diabetic Diet #DVT ppx: Eliquis 2.5 BID #Dispo Tele Visit type - Emergency Visit Emergency Visit: Yes ED Registration Date: 06/02/18 Care time: The patient presented to the Emergency Department on the above date and was hospitalized for further evaluation of their emergent condition. - New Patient This patient is new to me today: Yes Date on this admission: 06/02/18 - Critical Care Critical Care patient: No
[2018-06-02] MEDS ORDERED: ALBUTEROL SO4 8 GM HFA INHALER IH PRN ×3 (16:27→16:58)
[2018-06-02] MEDS: ATORVASTATIN CA 10 MG TABLET (FP) PO SCH (16:58)
[2018-06-02] MEDS ORDERED: METOPROLOL TARTRATE 50 MG TABLET (FP) PO STA (18:06)
--- NOTE | 2018-06-02 18:48 | PN ---
Teaching Attending Note Name of Resident: Tj Flannery ATTENDING PHYSICIAN STATEMENT I saw and evaluated the patient. I reviewed the resident's note and discussed the case with the resident. I agree with the resident's findings and plan as documented. SUBJECTIVE: Complains of headache - no nausea/vomiting. Left shoulder discomfort and decreased ROM. OBJECTIVE: Afebrile, hemodynamically stable. Last Vital Signs Temp Pulse Resp BP Pulse Ox 99.2 F 67 20 135/95 98 06/02/18 17:40 06/02/18 17:40 06/02/18 17:40 06/02/18 17:40 06/02/18 14:25 HEENT - R occipital superficial hematoma - tender+ Heart - S1, S2, no murmurs. Lungs - clear to auscultation Abdomen - soft, non-tender. Bowel Sounds Extremities - no edema. No calf tenderness. Laboratory Results - last 24 hr 06/02/18 06/02/18 06/02/18 08:20 08:20 08:20 WBC 9.1 RBC 4.90 Hgb 14.6 Hct 41.3 MCV 84.2 MCH 29.8 MCHC 35.3 RDW 13.5 Plt Count 238 MPV 8.2 Absolute Neuts (auto) 6.3 Neutrophils % 68.7 Lymphocytes % 16.6 Monocytes % 11.0 H Eosinophils % 2.9 Basophils % 0.8 Nucleated RBC % 0 PT with INR INR Sodium Potassium Chloride Carbon Dioxide Anion Gap BUN Creatinine Creat Clearance w eGFR POC Glucometer Random Glucose Calcium Total Bilirubin AST ALT Alkaline Phosphatase Creatine Kinase 277 Creatine Kinase Index 0.5 CK-MB (CK-2) 1.5 Troponin I < 0.02 B-Natriuretic Peptide 308.2 H Total Protein Albumin Urine Color Straw Urine Appearance Clear Urine pH 6.0 Ur Specific [place] 1.012 Urine Protein Negative Urine Glucose (UA) 2+ H Urine Ketones Negative Urine Blood Negative Urine Nitrite Negative Urine Bilirubin Negative Urine Urobilinogen Negative Ur Leukocyte Esterase Negative 06/02/18 06/02/18 06/02/18 08:20 08:20 08:31 WBC RBC Hgb Hct MCV MCH MCHC RDW Plt Count MPV Absolute Neuts (auto) Neutrophils % Lymphocytes % Monocytes % Eosinophils % Basophils % Nucleated RBC % PT with INR 11.60 INR 0.98 Sodium 133 L Potassium 4.4 Chloride 102 Carbon Dioxide 23 Anion Gap 8 BUN 17 Creatinine 1.3 Creat Clearance w eGFR 57.97 POC Glucometer [id number] Random Glucose 240 H Calcium 8.3 L Total Bilirubin 0.4 AST 18 ALT 27 Alkaline Phosphatase 115 Creatine Kinase Creatine Kinase Index CK-MB (CK-2) Troponin I B-Natriuretic Peptide Total Protein 6.8 Albumin 3.5 Urine Color Urine Appearance Urine pH Ur Specific [place] Urine Protein Urine Glucose (UA) Urine Ketones Urine Blood Urine Nitrite Urine Bilirubin Urine Urobilinogen Ur Leukocyte Esterase 06/02/18 16:55 WBC RBC Hgb Hct MCV MCH MCHC RDW Plt Count MPV Absolute Neuts (auto) Neutrophils % Lymphocytes % Monocytes % Eosinophils % Basophils % Nucleated RBC % PT with INR INR Sodium Potassium Chloride Carbon Dioxide Anion Gap BUN Creatinine Creat Clearance w eGFR POC Glucometer 182 Random Glucose Calcium Total Bilirubin AST ALT Alkaline Phosphatase Creatine Kinase Creatine Kinase Index CK-MB (CK-2) Troponin I B-Natriuretic Peptide Total Protein Albumin Urine Color Urine Appearance Urine pH Ur Specific [place] Urine Protein Urine Glucose (UA) Urine Ketones Urine Blood Urine Nitrite Urine Bilirubin Urine Urobilinogen Ur Leukocyte Esterase Home Medications Medication Instructions Recorded Albuterol Sulfate Inhaler - 1 - 2 inh PO Q4H PRN 06/02/18 [Ventolin Hfa Inhaler -] Amlodipine Besylate [Norvasc -] 10 mg PO DAILY 06/02/18 Aspirin [ASA -] 81 mg PO DAILY 06/02/18 Atorvastatin Calcium [Lipitor] 10 mg PO DAILY 06/02/18 Budesonide/Formeterol Fumarate 1 inh PO BID 06/02/18 [SYMBICORT 80/4.5mcg -] Cholecalciferol (Vitamin D3) 50,000 unit PO WEEKLY 06/02/18 [Vitamin D3 -] Docusate Sodium [Colace -] 100 mg PO BID 06/02/18 Enalapril Maleate [Vasotec -] 10 mg PO BID 06/02/18 Insulin Degludec [Tresiba 10 unit SQ HS 06/02/18 Flextouch U-100] Metoprolol Tartrate [Lopressor] 50 mg PO BID 06/02/18 Oxycodone HCl/Acetaminophen 1 each PO BID 06/02/18 [Endocet 10-325 mg Tablet] Polyethylene Glycol 3350 17 gm PO DAILY 06/02/18 Sennosides [Senna] 1 tab PO HS 06/02/18 Tamsulosin HCl [Flomax] 0.4 mg PO HS 06/02/18 Tizanidine HCl 2 mg PO BID 06/02/18 Zolpidem Tartrate [Ambien] 10 mg PO HS 06/02/18 ASSESSMENT AND PLAN: 52 year old male with CAD s/p CO 2001 (s/p PCI [facility]), HTN, HLD, DM 2, CKD 2 , BPH, PTSD, Hx Alcohol xs, COPD, admitted with episode of loss of consciousness , with no preceeding chest pain/palpitations/lightheadedness/aura. He spontaneously regained consciousness and complains of posterior headache in region of subcutaneous hematoma. He reports multiple episodes of LOC over the past year, most preceeded with palpitations, SOB, lightheadedness, and occassional tremor. He reports SOB on exertion and orthopnea but no chest pain, PND, or LE edema. In ED, he was found to be in new Atrial Fibrillation with a brief run of monomorphic V. tach (27 beats) and was given Amiodarone 150mg. 1. Recurrent Syncope - etiology possible arrhythmia. Found to have new Afib with brief run of Vtach in ED. Evaluated by Cardiology - r/o CO, Echo, cardiac catheterization technician. Given reports of some tremulous activity with LOC, will request EEG and Neuro eval as well to exclude seizure. 2. Newly recognized Atrial Fibrillation, rate controlled. ECG - Atrial Fibrillation, no acute changes, normal rate. Aspirin switched to Eliquis. Continue Lopressor. 3. HTN - continue Amlodipine, Enalapril, Metoprolol 4. HLD - Continue Atorvastatin 5. DM 2 - normally on Tresiba. Will cover with sliding scale insulin. Monitor capillary glucose. 6. CKD 3 - Stable. 7. CAD s/p CO - Aspirin changed to Eliquis due to new Afib Continue FERNANDA, BB, Statin. 8. COPD - Continue Symbicort. 9. BPH - Continue Tamsulosin. DVT Px - on Eliquis.
[2018-06-02] MEDS ORDERED: oxyCODONE HCL 5 MG TABLET PO STA (20:01)
[2018-06-02] MEDS ORDERED: ACETAMINOPHEN 325 MG TABLET (FP) PO STA (20:01)
[2018-06-02] MEDS: DOCUSATE SODIUM 100 MG CAPSULE (FP) PO SCH (21:16)
[2018-06-02] MEDS: ENALAPRIL MALEATE 10 MG TABLET (FP) PO SCH (21:16)
[2018-06-02] MEDS: METOPROLOL TARTRATE 50 MG TABLET (FP) PO SCH (21:16)
[2018-06-02] MEDS: APIXABAN 5 MG TABLET PO SCH (21:16)
[2018-06-02] MEDS: INSULIN SLIDING SCALE (NOVOLOG) 1 VIAL SQ SCH (21:17)
[2018-06-02] MEDS: BUDESONIDE/FORMETEROL FUMARATE 80/4.5 mcg INHALER IH SCH (21:41)
[2018-06-02] MEDS ORDERED: TAMSULOSIN HCL 0.4 MG CAP PO SCH (22:00)
[2018-06-03 06:38] LABS: INR 1.19 (0.83-1.09); PROTHROMBIN TIME (PATIENT) 14.1 SEC (9.7-13.0)
[2018-06-03] MEDS: INSULIN SLIDING SCALE (NOVOLOG) 1 VIAL SQ SCH ×3 (06:47→17:47)
[2018-06-03 06:50] LABS: BASO % 0.6 % (0-2.0); EOS % 2.9 % (0-4.5); HEMATOCRIT 40.8 % (35.4-49); HEMOGLOBIN 13.7 GM/dL (11.7-16.9); LYMPH % 19.5 % (8-40); MCH 28.5 pg (25.7-33.7); MCHC 33.5 g/dl (32.0-35.9); MEAN CELL VOLUME 84.9 fl (80-96); MONO % 9.1 % (3.8-10.2); NEUT % 67.9 % (42.8-82.8); PLATELET COUNT 221 K/MM3 (134-434); RBC 4.81 M/mm3 (4.00-5.60); RDW 13.6 % (11.9-15.9); WHITE BLOOD COUNT 9.9 K/mm3 (4.0-10.0)
[2018-06-03 06:54] LABS: ANION GAP 6 MMOL/L (8-16); BLOOD UREA NITROGEN 18 mg/dL (7-18); CALCIUM 8.5 mg/dL (8.5-10.1); CHLORIDE 103 mmol/L (98-107); CHOLESTEROL 161 mg/dL (50-200); CO2 27 mmol/L (21-32); CREATININE 1.4 mg/dL (0.55-1.3); GLUCOSE,RANDOM 151 mg/dL (74-106); HDL CHOLESTEROL 33 mg/dL (40-60); MAGNESIUM 2.1 mg/dL (1.8-2.4); PHOSPHOROUS 4.2 mg/dL (2.5-4.9); POTASSIUM 4.2 mmol/L (3.5-5.1); SODIUM 137 mmol/L (136-145); TRIGLYCERIDES 89 mg/dL (0-150)
--- NOTE | 2018-06-03 09:04 | CON.NEURO ---
Consult - History of Present Illness History of Present Illness: 52 y/o gentleman with a significant past medical history of DM, HLD, CKD Stage II, and [place] (2001) who presented to [facility] after experiencing a syncopal episode this 06/02. Per pt and heaven at bedside, pt was found in the hallway of his house by heaven. Pt endorses that he has experienced loss of consciousness numerous times this past year which are usually preceded by palpitations and lightheadedness though this recent episode was not. Sometimes these episodes are followed by urinary/bowel incontinence. Pt states when he begins to feel lightheaded and experience palpitations, he squats or sits down and this seems to assuage his symptoms. Furthermore, pt reports that sometimes his episodes of syncope are preceded by convulsions witnessed by bystanders. Endorses increasing SOB x 1 week and cough productive of whitish, foamy sputum. States he sometimes wakes up at night gasping for air, uses 2 pillows to sleep. In addition, he endorses a recent sinus infection productive of green mucous. Denies nausea, vomiting, or fever. he states frequent episodes of passing out over the last one yr, maybe 2-3 x/ week, feels rising sensation form his feet, then may pass out, shaking; sister with hx of epilepsy and he states he seen a seizure before--he thinks he is having a seizure. found to have AFIB seen by cardiology and started on AC - Alcohol/Substance Use Hx Alcohol Use: No - Smoking History Smoking history: Current every day smoker Have you smoked in the past 12 months: Yes Aproximately how many cigarettes per day: 20 Home Medications - Allergies Allergies/Adverse Reactions: Allergies Allergy/AdvReac Type Severity Reaction Status Date / Time No Known Allergies Allergy Verified 06/02/18 08:34 - Home Medications Home Medications: Ambulatory Orders Albuterol Sulfate Inhaler - [Ventolin Hfa Inhaler -] 1 - 2 inh PO Q4H PRN Amlodipine Besylate [Norvasc -] 10 mg PO DAILY 06/02/18 Aspirin [ASA -] 81 mg PO DAILY 06/02/18 Atorvastatin Calcium [Lipitor] 10 mg PO DAILY 06/02/18 Budesonide/Formeterol Fumarate [SYMBICORT 80/4.5mcg -] 1 inh PO BID 06/02/18 Cholecalciferol (Vitamin D3) [Vitamin D3 -] 50,000 unit PO WEEKLY 06/02/18 Docusate Sodium [Colace -] 100 mg PO BID 06/02/18 Enalapril Maleate [Vasotec -] 10 mg PO BID 06/02/18 Insulin Degludec [Tresiba Flextouch U-100] 10 unit SQ HS 06/02/18 Metoprolol Tartrate [Lopressor] 50 mg PO BID 06/02/18 Oxycodone HCl/Acetaminophen [Endocet 10-325 mg Tablet] 1 each PO BID 06/02/18 Polyethylene Glycol 3350 17 gm PO DAILY 06/02/18 Sennosides [Senna] 1 tab PO HS 06/02/18 Tamsulosin HCl [Flomax] 0.4 mg PO HS 06/02/18 Tizanidine HCl 2 mg PO BID 06/02/18 Zolpidem Tartrate [Ambien] 10 mg PO HS 06/02/18 Family Disease History - Family Disease History Family Disease History: Heart Disease: Brother (CABG in 30s) Physical Exam-Neuro Vital Signs: Vital Signs Temperature 98.8 F 06/03/18 06:00 Pulse Rate 61 06/03/18 06:00 Respiratory Rate 20 06/03/18 06:00 Blood Pressure 132/68 06/03/18 06:00 O2 Sat by Pulse Oximetry (%) 98 06/02/18 21:00 Constitutional: Yes: Well Nourished Labs: CBC, BMP 06/03/18 05:30 06/03/18 05:30 INR, PTT INR 1.19 (0.83-1.09) H 06/03/18 05:30 - Neuro Exam Level Of Consciousness: Yes: Alert (nonfocal neuro exam ) Problem List - Problems (1) Seizure Code(s): R56.9 - UNSPECIFIED CONVULSIONS (2) Atrial fibrillation, new onset Code(s): I48.91 - UNSPECIFIED ATRIAL FIBRILLATION (3) Syncope and collapse Code(s): R55 - SYNCOPE AND COLLAPSE Assessment/Plan 52 y/o gentleman with a significant past medical history of DM, HLD, CKD Stage II, and [place] (2001) who presented to [facility] after experiencing a syncopal episode this 06/02. Per pt and fiancee at bedside, pt was found in the hallway of his house by heaven. Pt endorses that he has experienced loss of consciousness numerous times this past year which are usually preceded by palpitations and lightheadedness though this recent episode was not. Sometimes these episodes are followed by urinary/bowel incontinence. Pt states when he begins to feel lightheaded and experience palpitations, he squats or sits down and this seems to assuage his symptoms. Furthermore, pt reports that sometimes his episodes of syncope are preceded by convulsions witnessed by bystanders. Endorses increasing SOB x 1 week and cough productive of whitish, foamy sputum. States he sometimes wakes up at night gasping for air, uses 2 pillows to sleep. In addition, he endorses a recent sinus infection productive of green mucous. Denies nausea, vomiting, or fever. he states frequent episodes of passing out over the last one yr, maybe 2-3 x/ week, feels rising sensation form his feet, then may pass out, shaking; sister with hx of epilepsy and he states he seen a seizure before--he thinks he is having a seizure. found to have AFIB seen by cardiology and started on AC AP : recurrent syncopal attacks , + Afib though as per him he has known he has afib in past Sx suggestive of underlying seizures as well , ? + fAm HX clausterophobic, unable to get closed MRI -will do outpt get routine EEG now and outpt [address] HD (-) start Keppra 500BID empirically ( now that he is on AC, + fall risk ) , will FU creatinine likely underlying DM neuropathy as well, a1c needs to be optimized FU CARD as well, r/o any other arrhythmia as cause of syncope DR HEARD
--- NOTE | 2018-06-03 09:55 | EKG ---
Test Reason : Blood Pressure : / mmHG Vent. Rate : 069 BPM Atrial Rate : 326 BPM P-R Int : 000 ms QRS Dur : 088 ms QT Int : 356 ms P-R-T Axes : 000 020 058 degrees QTc Int : 381 ms ATRIAL FIBRILLATION ABNORMAL ECG WHEN COMPARED WITH ECG OF 12-DEC-2016 21:03, ATRIAL FIBRILLATION HAS REPLACED SINUS RHYTHM Confirmed by KIRILL MCDOWELL MD ([id number]) on 06/03/2018 9:55:17 AM Referred By: Confirmed By:KIRILL MCDOWELL MD
[2018-06-03] MEDS ORDERED: POLYETHYLENE GLYCOL 3350 119 GM BTL PO SCH (10:00)
[2018-06-03] MEDS ORDERED: amLODIPine BESYLATE 10 MG TABLET (FP) PO SCH (10:00)
[2018-06-03] MEDS: METOPROLOL TARTRATE 50 MG TABLET (FP) PO SCH (10:20)
[2018-06-03] MEDS: ATORVASTATIN CA 10 MG TABLET (FP) PO SCH (10:20)
[2018-06-03] MEDS: DOCUSATE SODIUM 100 MG CAPSULE (FP) PO SCH (10:21)
[2018-06-03] MEDS: ENALAPRIL MALEATE 10 MG TABLET (FP) PO SCH (10:21)
[2018-06-03] MEDS: APIXABAN 5 MG TABLET PO SCH (10:21)
[2018-06-03] MEDS: BUDESONIDE/FORMETEROL FUMARATE 80/4.5 mcg INHALER IH SCH (10:21)
--- NOTE | 2018-06-03 10:26 | PN ---
Progress Note, Physician History of Present Illness: Denies further near or true syncope or palpitations, c/o left shoulder discomfort and GUTIERREZ since fall and trauma. - Current Medication List Current Medications: Active Medications Albuterol Sulfate (Ventolin Hfa Inhaler -) 1 puff IH Q4H PRN PRN Reason: SHORTNESS OF BREATH/WHEEZING Albuterol Sulfate (Ventolin Hfa Inhaler -) 2 puff IH Q4H PRN PRN Reason: SHORTNESS OF BREATH/WHEEZING Amlodipine Besylate (Norvasc -) 10 mg PO DAILY [facility] Last Admin: 06/03/18 10:20 Dose: 10 mg Apixaban (Eliquis -) 5 mg PO BID [facility] Last Admin: 06/03/18 10:21 Dose: 5 mg Atorvastatin Calcium (Lipitor -) 10 mg PO DAILY [facility] Last Admin: 06/03/18 10:20 Dose: 10 mg Budesonide/Formoterol Fumarate (Symbicort 80/4.5mcg -) 1 puff IH BID [facility] Last Admin: 06/03/18 10:21 Dose: 1 puff Docusate Sodium (Colace -) 100 mg PO BID [facility] Last Admin: 06/03/18 10:21 Dose: 100 mg Enalapril Maleate (Vasotec -) 10 mg PO BID [facility] Last Admin: 06/03/18 10:21 Dose: 10 mg Insulin Aspart (Novolog Vial Sliding Scale -) 1 vial SQ [facility]; Protocol Last Admin: 06/03/18 06:47 Dose: 2 units Levetiracetam (Keppra -) 500 mg PO BID [facility] Metoprolol Tartrate (Lopressor -) 50 mg PO BID [facility] Last Admin: 06/03/18 10:20 Dose: 50 mg Polyethylene Glycol (Miralax (For Daily Use) -) 17 gm PO DAILY [facility] Last Admin: 06/03/18 10:21 Dose: Not Given Tamsulosin HCl (Flomax -) 0.4 mg PO HS [facility] Last Admin: 06/02/18 21:16 Dose: 0.4 mg - Objective Vital Signs: Vital Signs Temperature 98.8 F 06/03/18 06:00 Pulse Rate 61 06/03/18 06:00 Respiratory Rate 20 06/03/18 06:00 Blood Pressure 132/68 06/03/18 06:00 O2 Sat by Pulse Oximetry (%) 98 06/02/18 21:00 Constitutional: Yes: No Distress, Calm Neck: Yes: Supple Cardiovascular: Yes: Regular Rate and Rhythm Respiratory: Yes: Regular, CTA Bilaterally Gastrointestinal: Yes: Normal Bowel Sounds, Soft Edema: No Labs: CBC, BMP 06/03/18 05:30 06/03/18 05:30 INR, PTT INR 1.19 (0.83-1.09) H 06/03/18 05:30 - ....Imaging EKG: Report Reviewed (pAfib->NSR, bursts of NSVT, no sig pauses) Problem List - Problems (1) Coronary artery disease Code(s): I25.10 - ATHSCL HEART DISEASE OF [place] CORONARY ARTERY W/O ANG PCTRS Qualifiers: Coronary Disease-Associated Artery/Lesion type: elem artery [place] vs. transplanted heart: elem heart Associated angina: without angina Qualified Code(s): I25.10 - Atherosclerotic heart disease of [place] coronary artery without angina pectoris (2) Old myocardial infarction Code(s): I25.2 - OLD MYOCARDIAL INFARCTION (3) Syncope and collapse Code(s): R55 - SYNCOPE AND COLLAPSE (4) V-tach Code(s): I47.2 - VENTRICULAR TACHYCARDIA (5) Paroxysmal atrial fibrillation Code(s): I48.0 - PAROXYSMAL ATRIAL FIBRILLATION Assessment/Plan 1. Recurrent syncope, etiology to be determined 2. Paroxysmal afib->NSR [id number] 3. CAD h/o [place] s/p PCI [facility] 2001 4. Monomorphic VT suspect scar VT 5. HTN heart disease 6. Hyperlipidemia 7. Type 2 DM 8. CKD II 9. Suspect seizure d/o P:1. Ruled out for TX, echo to assess ventricular and valve fxn, check orthostatic VS and repeat ECG, if LVEF<35% will be candidate for ICD 2. Continue Lipitor 10 qd, vasotec 10 bid, Lopressor 50 bid, Norvasc 10 qd 3. Continue Eliquis 5 bid given elevated risk score 4. Empiric juan luis, f/u EEG, unable to tolerate closed MRI due to claustrophobia
[2018-06-03] MEDS ORDERED: levETIRAcetam 500 MG TABLET (FP) PO SCH (10:30)
--- NOTE | 2018-06-03 14:53 | ECHO ---
Name: YAJAIRA PENNY, JR Exam:Adult Echocardiogram Study Date: 06/03/2018 12:20 PM Age: 52 yrs Reason For Study: SYNCOPE Height: 72 in Weight: 250 lb BSA: 2.3 m2 MMode/2D Measurements & Calculations IVSd: 0.95 cm Ao root diam: 3.5 cm LVIDd: 6.0 cm LA dimension: 4.1 cm LVIDs: 4.1 cm LVPWd: 1.1 cm EDV(Teich): 178.8 ml TAPSE: 3.4 cm ESV(Teich): 74.7 ml Doppler Measurements & Calculations MV E max jovany: 52.8 cm/sec TR max jovany: 184.6 cm/sec MV A max jovany: 48.9 cm/sec TR max P.6 mmHg MV E/A: 1.1 MV dec time: 0.19 sec PI end-d jovany: 77.4 cm/sec Med Peak E' Jovany: 4.6 cm/sec Med E/e': 11.5 Lat Peak E' Jovany: 7.9 cm/sec Lat E/e': 6.7 Procedure A complete two-dimensional transthoracic echocardiogram was performed (2D, M-mode, Doppler and color flow Doppler). Left Ventricle The left ventricle is normal in size. Left ventricular systolic function is normal. Ejection Fraction = 55- 60%. No regional wall motion abnormalities noted. Right Ventricle The right ventricle is normal size. The right ventricular systolic function is normal. RV systolic TD I is 12 cm/s. Atria The left atrium is mildly dilated. Right atrial size is normal. Mitral Valve The mitral valve is normal in structure and function. There is no mitral regurgitation noted. Tricuspid Valve The tricuspid valve is normal in structure and function. No tricuspid regurgitation. Aortic Valve The aortic valve is normal in structure and function. No aortic regurgitation is present. Pulmonic Valve The pulmonic valve is not well visualized. Trace pulmonic valvular regurgitation. Great Vessels The aortic root is normal size. Pericardium/Pleura There is no pericardial effusion. Interpretation Summary The left ventricle is normal in size. Left ventricular systolic function is normal. No regional wall motion abnormalities noted. Ejection Fraction = 55-60%. The right ventricular systolic function is normal. The left atrium is mildly dilated. Right atrial size is normal. Trace pulmonic valvular regurgitation. There is no pericardial effusion. Previous study is not available for comparison Marvin Murphy MD 06/03/2018 02:53 PM
--- NOTE | 2018-06-03 15:41 | EKG ---
Test Reason : Blood Pressure : / mmHG Vent. Rate : 053 BPM Atrial Rate : 053 BPM P-R Int : 152 ms QRS Dur : 092 ms QT Int : 428 ms P-R-T Axes : 052 027 061 degrees QTc Int : 401 ms SINUS BRADYCARDIA OTHERWISE NORMAL ECG WHEN COMPARED WITH ECG OF 02-JUN-2018 08:39, SINUS RHYTHM HAS REPLACED ATRIAL FIBRILLATION Confirmed by KIRILL MCDOWELL MD ([id number]) on 06/03/2018 3:40:33 PM Referred By: Confirmed By:KIRILL MCDOWELL MD
--- NOTE | 2018-06-03 16:12 | PN ---
Physical Exam: SUBJECTIVE: Patient seen and examined. Patient had multiple runs of VTACH overnight with palpitations. Also says he has a runny nose and cough with green sputum. Says he has allergies. OBJECTIVE: Vital Signs Period Temp Pulse Resp BP Sys/Raymundo Pulse Ox Last 24 Hr 97.7 F-99.2 F 51-68 20-20 132-140/68-95 98 GENERAL: The patient is awake, alert, and fully oriented, in no acute distress. EYES: PERRL, extraocular movements intact HEENT: R occipital superficial hematoma, oropharynx clear without exudates, moist mucous membranes. mild sinus tenderness NECK: Trachea midline, full range of motion, supple. LUNGS: Breath sounds equal, clear to auscultation bilaterally HEART: Regular rate and rhythm, S1, S2 without murmur, rub or gallop. ABDOMEN: Soft, nontender, nondistended, normoactive bowel sounds EXTREMITIES: 2+ pulses, warm, well-perfused, no edema. NEUROLOGICAL: Cranial nerves II through XII grossly intact Laboratory Results - last 24 hr 06/02/18 06/02/18 06/02/18 08:20 08:31 16:55 WBC RBC Hgb Hct MCV MCH MCHC RDW Plt Count MPV Absolute Neuts (auto) Neutrophils % Lymphocytes % Monocytes % Eosinophils % Basophils % Nucleated RBC % PT with INR INR PTT (Actin FS) Sodium 133 L Potassium 4.4 Chloride 102 Carbon Dioxide 23 Anion Gap 8 BUN 17 Creatinine 1.3 Creat Clearance w eGFR 57.97 POC Glucometer [phone] Random Glucose 240 H Hemoglobin A1c % Calcium 8.3 L Phosphorus Magnesium 2.0 Total Bilirubin 0.4 AST 18 ALT 27 Alkaline Phosphatase 115 Total Protein 6.8 Albumin 3.5 Triglycerides Cholesterol Total LDL Cholesterol HDL Cholesterol 06/02/18 06/03/18 06/03/18 21:15 05:26 05:30 WBC 9.9 RBC 4.81 Hgb 13.7 Hct 40.8 MCV 84.9 MCH 28.5 MCHC 33.5 RDW 13.6 Plt Count 221 MPV 8.0 Absolute Neuts (auto) 6.8 Neutrophils % 67.9 Lymphocytes % 19.5 Monocytes % 9.1 Eosinophils % 2.9 Basophils % 0.6 Nucleated RBC % 0 PT with INR INR PTT (Actin FS) Sodium Potassium Chloride Carbon Dioxide Anion Gap BUN Creatinine Creat Clearance w eGFR POC Glucometer 190 153 Random Glucose Hemoglobin A1c % Calcium Phosphorus Magnesium Total Bilirubin AST ALT Alkaline Phosphatase Total Protein Albumin Triglycerides Cholesterol Total LDL Cholesterol HDL Cholesterol 06/03/18 06/03/18 06/03/18 05:30 05:30 05:30 WBC RBC Hgb Hct MCV MCH MCHC RDW Plt Count MPV Absolute Neuts (auto) Neutrophils % Lymphocytes % Monocytes % Eosinophils % Basophils % Nucleated RBC % PT with INR 14.10 H INR 1.19 H PTT (Actin FS) 31.0 Sodium 137 Potassium 4.2 Chloride 103 Carbon Dioxide 27 Anion Gap 6 L BUN 18 Creatinine 1.4 H Creat Clearance w eGFR 53.22 POC Glucometer Random Glucose 151 H Hemoglobin A1c % 8.3 H Calcium 8.5 Phosphorus 4.2 Magnesium 2.1 Total Bilirubin AST ALT Alkaline Phosphatase Total Protein Albumin Triglycerides 89 Cholesterol 161 Total LDL Cholesterol 103 H HDL Cholesterol 33 L 06/03/18 12:55 WBC RBC Hgb Hct MCV MCH MCHC RDW Plt Count MPV Absolute Neuts (auto) Neutrophils % Lymphocytes % Monocytes % Eosinophils % Basophils % Nucleated RBC % PT with INR INR PTT (Actin FS) Sodium Potassium Chloride Carbon Dioxide Anion Gap BUN Creatinine Creat Clearance w eGFR POC Glucometer 193 Random Glucose Hemoglobin A1c % Calcium Phosphorus Magnesium Total Bilirubin AST ALT Alkaline Phosphatase Total Protein Albumin Triglycerides Cholesterol Total LDL Cholesterol HDL Cholesterol Active Medications Generic Name Dose Route Start Last Admin Trade Name Freq PRN Reason Stop Dose Admin Albuterol Sulfate 1 puff 06/02/18 16:58 Ventolin Hfa Inhaler - IH Q4H PRN SHORTNESS OF BREATH/WHEEZING Albuterol Sulfate 2 puff 06/02/18 16:58 Ventolin Hfa Inhaler - IH Q4H PRN SHORTNESS OF BREATH/WHEEZING Amlodipine Besylate 10 mg 06/03/18 10:00 06/03/18 10:20 Norvasc - PO 10 mg DAILY JOSE ANTONIO Administration Apixaban 5 mg 06/02/18 22:00 06/03/18 10:21 Eliquis - PO 5 mg BID JOSE ANTONIO Administration Atorvastatin Calcium 10 mg 06/02/18 16:30 06/03/18 10:20 Lipitor - PO 10 mg DAILY JOSE ANTONIO Administration Budesonide/Formoterol Fumarate 1 puff 06/02/18 22:00 06/03/18 10:21 Symbicort 80/4.5mcg - IH 1 puff BID JOSE ANTONIO Administration Docusate Sodium 100 mg 06/02/18 22:00 06/03/18 10:21 Colace - PO 100 mg BID JOSE ANTONIO Administration Enalapril Maleate 10 mg 06/02/18 22:00 06/03/18 10:21 Vasotec - PO 10 mg BID JOSE ANTONIO Administration Insulin Aspart 1 vial 06/02/18 22:00 06/03/18 15:57 Novolog Vial Sliding Scale - SQ Not Given ACHS JOSE ANTONIO Protocol Levetiracetam 500 mg 06/03/18 10:30 06/03/18 15:57 Keppra - PO 500 mg BID JOSE ANTONIO Administration Metoprolol Tartrate 50 mg 06/02/18 22:00 06/03/18 10:20 Lopressor - PO 50 mg BID JOSE ANTONIO Administration Polyethylene Glycol 17 gm 06/03/18 10:00 06/03/18 10:21 Miralax (For Daily Use) - PO Not Given DAILY JOSE ANTONIO Tamsulosin HCl 0.4 mg 06/02/18 22:00 06/02/18 21:16 Flomax - PO 0.4 mg HS JOSE ANTONIO Administration ASSESSMENT/PLAN: #Recurrent Syncope -likely secondary to arrhythmia. -Found to have new Afib with brief run of Vtach in ED. -Vtach overnight -Cardio consulted -Echo unremarkable. EF 55-60%. TN excluded, possible scar VT -Neuro consulted: clausterophobic, unable to get closed MRI -will do outpt, get routine EEG now and outpt 3 day. start Keppra 500BID empirically (now that he is on AC, + fall risk ) -Head CT neg #A-fib -ECG - Atrial Fibrillation, no acute changes, normal rate. -Aspirin switched to Eliquis -Cont. Lopressor #HTN - Continue Lipitor 10 qd, vasotec 10 bid, Lopressor 50 bid, Norvasc 10 qd #HLD -Continue Atorvastatin #DM 2 -held home Tresiba. -BGM, Insulin sliding scale #CKD 3 -Stable. #CAD s/p TN -cont. Eliquis -Continue FERNANDA, BB, Statin. #COPD -Continue Symbicort. #BPH -Continue Tamsulosin. #DVT Px -Eliquis Dispo: Monitor overnight per Cardio Visit type - Emergency Visit Emergency Visit: Yes ED Registration Date: 06/02/18 Care time: The patient presented to the Emergency Department on the above date and was hospitalized for further evaluation of their emergent condition. - New Patient This patient is new to me today: Yes Date on this admission: 06/03/18 - Critical Care Critical Care patient: No
--- NOTE | 2018-06-03 17:16 | PN ---
Teaching Attending Note Name of Resident: Ramona Up ATTENDING PHYSICIAN STATEMENT I saw and evaluated the patient. I reviewed the resident's note and discussed the case with the resident. I agree with the resident's findings and plan as documented. SUBJECTIVE: Still complains of some headache. No limb numbness/weakness. No nausea/vomiting. No chest pain/palpitations. No further syncope/LOC. OBJECTIVE: Afebrile/Hemodynamically Stable. Last Vital Signs Temp Pulse Resp BP Pulse Ox 97.7 F 51 L 20 135/68 98 06/03/18 14:00 06/03/18 14:00 06/03/18 06:00 06/03/18 14:00 06/02/18 21:00 HEENT - tender hematoma R occiput. Heart - S1, S2, RRR Lungs - clear to auscultation Abdomen- soft, non-tender. Bowel Sounds normal. Extremities - no calf tenderness. R shoulder tenderness and decreased abduction and flexion. Joint not erythematous or swollen. Laboratory Results - last 24 hr 06/02/18 06/02/18 06/02/18 08:20 16:55 21:15 WBC RBC Hgb Hct MCV MCH MCHC RDW Plt Count MPV Absolute Neuts (auto) Neutrophils % Lymphocytes % Monocytes % Eosinophils % Basophils % Nucleated RBC % PT with INR INR PTT (Actin FS) Sodium 133 L Potassium 4.4 Chloride 102 Carbon Dioxide 23 Anion Gap 8 BUN 17 Creatinine 1.3 Creat Clearance w eGFR 57.97 POC Glucometer 182 190 Random Glucose 240 H Hemoglobin A1c % Calcium 8.3 L Phosphorus Magnesium 2.0 Total Bilirubin 0.4 AST 18 ALT 27 Alkaline Phosphatase 115 Total Protein 6.8 Albumin 3.5 Triglycerides Cholesterol Total LDL Cholesterol HDL Cholesterol 06/03/18 06/03/18 06/03/18 05:26 05:30 05:30 WBC 9.9 RBC 4.81 Hgb 13.7 Hct 40.8 MCV 84.9 MCH 28.5 MCHC 33.5 RDW 13.6 Plt Count 221 MPV 8.0 Absolute Neuts (auto) 6.8 Neutrophils % 67.9 Lymphocytes % 19.5 Monocytes % 9.1 Eosinophils % 2.9 Basophils % 0.6 Nucleated RBC % 0 PT with INR 14.10 H INR 1.19 H PTT (Actin FS) 31.0 Sodium Potassium Chloride Carbon Dioxide Anion Gap BUN Creatinine Creat Clearance w eGFR POC Glucometer 153 Random Glucose Hemoglobin A1c % Calcium Phosphorus Magnesium Total Bilirubin AST ALT Alkaline Phosphatase Total Protein Albumin Triglycerides Cholesterol Total LDL Cholesterol HDL Cholesterol 06/03/18 06/03/18 06/03/18 05:30 05:30 12:55 WBC RBC Hgb Hct MCV MCH MCHC RDW Plt Count MPV Absolute Neuts (auto) Neutrophils % Lymphocytes % Monocytes % Eosinophils % Basophils % Nucleated RBC % PT with INR INR PTT (Actin FS) Sodium 137 Potassium 4.2 Chloride 103 Carbon Dioxide 27 Anion Gap 6 L BUN 18 Creatinine 1.4 H Creat Clearance w eGFR 53.22 POC Glucometer 193 Random Glucose 151 H Hemoglobin A1c % 8.3 H Calcium 8.5 Phosphorus 4.2 Magnesium 2.1 Total Bilirubin AST ALT Alkaline Phosphatase Total Protein Albumin Triglycerides 89 Cholesterol 161 Total LDL Cholesterol 103 H HDL Cholesterol 33 L Current Medications Generic Name Dose Route Start Last Admin Trade Name Freq PRN Reason Stop Dose Admin Albuterol Sulfate 1 puff 06/02/18 16:58 Ventolin Hfa Inhaler - IH Q4H PRN SHORTNESS OF BREATH/WHEEZING Albuterol Sulfate 2 puff 06/02/18 16:58 Ventolin Hfa Inhaler - IH Q4H PRN SHORTNESS OF BREATH/WHEEZING Amlodipine Besylate 10 mg 06/03/18 10:00 06/03/18 10:20 Norvasc - PO 10 mg DAILY JOSE ANTONIO Administration Apixaban 5 mg 06/02/18 22:00 06/03/18 10:21 Eliquis - PO 5 mg BID JOSE ANTONIO Administration Atorvastatin Calcium 10 mg 06/02/18 16:30 06/03/18 10:20 Lipitor - PO 10 mg DAILY JOSE ANTONIO Administration Budesonide/Formoterol Fumarate 1 puff 06/02/18 22:00 06/03/18 10:21 Symbicort 80/4.5mcg - IH 1 puff BID JOSE ANTONIO Administration Docusate Sodium 100 mg 06/02/18 22:00 06/03/18 10:21 Colace - PO 100 mg BID JOSE ANTONIO Administration Enalapril Maleate 10 mg 06/02/18 22:00 06/03/18 10:21 Vasotec - PO 10 mg BID JOSE ANTONIO Administration Insulin Aspart 1 vial 06/02/18 22:00 06/03/18 15:57 Novolog Vial Sliding Scale - SQ Not Given ACHS JOSE ANTONIO Protocol Levetiracetam 500 mg 06/03/18 10:30 06/03/18 15:57 Keppra - PO 500 mg BID JOSE ANTONIO Administration Metoprolol Tartrate 50 mg 06/02/18 22:00 06/03/18 10:20 Lopressor - PO 50 mg BID JOSE ANTONIO Administration Polyethylene Glycol 17 gm 06/03/18 10:00 06/03/18 10:21 Miralax (For Daily Use) - PO Not Given DAILY JOSE ANTONIO Tamsulosin HCl 0.4 mg 06/02/18 22:00 06/02/18 21:16 Flomax - PO 0.4 mg HS JOSE ANTONIO Administration ASSESSMENT AND PLAN: 52 year old male with CAD s/p AL 2001 (s/p PCI [place]), HTN, HLD, DM 2, CKD 2 , BPH, PTSD, Hx Alcohol xs, COPD, admitted with episode of loss of consciousness , with no preceeding chest pain/palpitations/lightheadedness/aura. He spontaneously regained consciousness and complains of posterior headache in region of subcutaneous hematoma. He reported multiple episodes of LOC over the past year, most were preceeded with palpitations, SOB, lightheadedness, and occassional tremor. Additionally, he reported SOB on exertion and orthopnea but no chest pain, PND, or LE edema. In the ED, he was found to be in new Atrial Fibrillation with a brief run of monomorphic V. tach (27 beats) and was given Amiodarone 150mg. 1. Recurrent Syncope - etiology possible arrhythmia vs seizure. Found to have new Afib with brief run of Vtach in ED - now back in SR with multiple episodes of Vtach overnight. AL excluded, possible scar VT, Echo normal. For another 48 hours of observation as per Cardiology. Given reports of some tremulous activity with LOC, EEG was requested along with Neuro eval - patient started on empiric Keppra by Neuro pending further investigations including EEG and out-patient follow up and investigation including open MRI (as patient is claustrophobic). 2. Newly recognized Atrial Fibrillation, paroxysmal ECG - Atrial Fibrillation, no acute changes, normal rate. Aspirin switched to Eliquis. Continue Lopressor. 3. HTN - continue Amlodipine, Enalapril, Metoprolol 4. HLD - Continue Atorvastatin 5. DM 2 - normally on Tresiba. Will cover with sliding scale insulin. Monitor capillary glucose. 6. CKD 3 - Stable. 7. CAD s/p AL s/p PCI [place] - Aspirin changed to Eliquis due to new Afib Continue FERNANDA, BB, Statin. 8. COPD - Continue Symbicort. 9. BPH - Continue Tamsulosin. 10. L rotator cuff injury - decreased ROM about L shoulder. Shoulder Xray negative. Will order PT - if no improvement, can consider Ortho eval as out- patient. DVT Px - on Eliquis.
[2018-06-03 17:54] VITALS: BP 132/76; PULSE 53; TEMP 98.1
--- NOTE | 2018-06-03 18:44 | PN ---
Progress Note (short form) - Note Progress Note: Received call from Nurse. Patient wants to leave AMA. Risks of leaving AMA explained to the patient. Patient signed out AMA.
== END 2018-06-03 18:50 | disposition left against medical advice (07) | DRG 201 ==
LOC: JER 07:52 → JERBED 11:11 → J4W 12:35
DX: I48.0 Paroxysmal atrial fibrillation (principal); R55 Syncope and collapse; E78.5 Hyperlipidemia, unspecified; E11.22 Type 2 diabetes mellitus with diabetic chronic kidney disease; I47.2 Ventricular tachycardia; N18.3 Chronic kidney disease, stage 3 (moderate); I25.10 Atherosclerotic heart disease of native coronary artery without angina pectoris; Z98.61 Coronary angioplasty status; J44.9 Chronic obstructive pulmonary disease, unspecified; N40.0 Benign prostatic hyperplasia without lower urinary tract symptoms; I25.2 Old myocardial infarction; F17.210 Nicotine dependence, cigarettes, uncomplicated; E66.9 Obesity, unspecified; I13.10 Hypertensive heart and chronic kidney disease without heart failure, with stage 1 through stage 4 chronic kidney disease, or unspecified chronic kidney disease; Z68.33 Body mass index [BMI] 33.0-33.9, adult
CPT/HCPCS: 36415; 70450-TC; 71045-TC-FY; 72125-TC; 73030-TC-LT-FY; 80048; 80053; 80061; 81003; 82550; 82553; 82962; 83036; 83721; 83735; 83880; 84100; 84484; 85025; 85610; 85730; 93005; 93010; 93306-TC; 95816; 99285-25; J0131

== ENCOUNTER 2020-03-07 18:59 | Emergency (ER) | payer OTHER ==
[2020-03-07 19:27] VITALS: TEMP 98.3; BMI 33.3
--- NOTE | 2020-03-07 19:59 | PDOC ---
Documentation entered by Lisa Marin SCRIBE, acting as scribe for Tanya Mayo MD. Tanya Mayo MD: This documentation has been prepared by the Rose moreira Sydney, SCRIBE, under my direction and personally reviewed by me in its entirety. I confirm that the documentation accurately reflects all work, treatment, procedures, and medical decision making performed by me. Attending Attestation - Resident Resident Name: Troy Bennett - ED Attending Attestation I have performed the following: I have examined & evaluated the patient, The case was reviewed & discussed with the resident, I agree w/resident's findings & plan, Exceptions are as noted - HPI HPI: 03/07/20 19:53 54 yo male has had high blood pressure and headaches chronically but tonight his girlfriend brought him in for worsening headace. No focal meuro deficits on exam. PMH: DM,HTN, CAD s/p VT.CKD, HLD,afib Patient is a 54 year old male with a significant past medical history of DM,HTN, CAD s/p VT.CKD, HLD, Afib who presents to the ED with two weeks of elevated blood pressure and headaches. Denies fever, chills, shortness of breath, chest pain, abdominal pain, nausea, vomiting, diarrhea, or urinary changes. Allergies: NKDA PCP: Dr. John 03/07/20 20:44 03/07/20 21:15 - Physicial Exam PE: 03/07/20 19:59 Tall 54 yo male with c/o of several weeks of elevated BP and headaches head ncat eyes eomi neck supple lungs cta b/l cvs irreg irreg rhythm abdomen nontender extremities no tenderenss, no deformities skin warm and dry neuro axox3,ambulatory, motor strength 5/5, b/l 03/07/20 20:45 - Medical Decision Making 03/07/20 20:49 This pt has had chronic nightly left sided headaches and he felt that his nightly anticoagulation was the cause of these headaches so his cloth trimmer hand switched him to eliquis . He started eliquis on Sunday but still has the headaches. His girlfriend brought him in when he c/o pain. His cloth trimmer hand and other physicians are at [facility] 03/07/20 21:17 03/07/20 22:07 he denies visual changes,nausea ,vomiting ,ataxia review of his labs reveals creatinine of 1.7, his previous level was 1.4 Discharge - Discharge Information Problems reviewed: Yes Clinical Impression/Diagnosis: Headache Qualifiers: Headache type: unspecified Headache chronicity pattern: chronic headache Intractability: intractable Qualified Code(s): R51 - Headache Disposition: HOME - Follow up/Referral Referrals: Devante Cantu MD [Non Staff, Medical] - Shayla Gil MD [Staff Physician] - Ney John MD [Primary Care Provider] - - Patient Discharge Instructions Patient Printed Discharge Instructions: DI for High Blood Pressure, How to Monitor Your Blood Pressure at Home Additional Instructions: You came to the ED with a headache similar to the ones you've had in the past. We assessed you and tested your blood. We determined that you are safe to go home. Please follow up with the neurologist listed in this packet within 48hours of leaving the hospital today, and return to the ED with any severe or worsening symptoms. - Post Discharge Activity
[2020-03-07] MEDS ORDERED: ACETAMINOPHEN 325 MG TABLET (FP) PO ONE (20:41)
[2020-03-07] MEDS ORDERED: ACETAMINOPHEN 325 MG TABLET (FP) ONE (20:43)
[2020-03-07 21:12] LABS: BASO % 0.8 % (0-2.0); EOS % 2.4 % (0-4.5); HEMATOCRIT 43.1 % (35.4-49); LYMPH % 19.5 % (8-40); MCH 30.1 pg (25.7-33.7); MCHC 34.8 g/dl (32.0-35.9); MEAN CELL VOLUME 86.2 fl (80-96); MEAN PLT VOLUME 8.2 fl (7.5-11.1); MONO % 7.7 % (3.8-10.2); NEUT % 69.6 % (42.8-82.8); PLATELET COUNT 205 K/MM3 (134-434); RDW 13.2 % (11.9-15.9); WHITE BLOOD COUNT 8.9 K/mm3 (4.0-10.0)
--- NOTE | 2020-03-07 21:19 | PDOC ---
History of Present Illness - General Chief Complaint: Blood Pressure Problem Stated Complaint: HYPERTENTION Time Seen by Provider: 03/07/20 19:48 - History of Present Illness Initial Comments: 03/07/20 21:30 54yo M w/ PMHx headaches, anxiety, bipolar, abnormal EEG, DM, HTN, AF presents with a headache that is similar to ones he has had in the past. His GF called 911 today because she believed he was in more pain than usual. On presentation, pt describes pain to be similar in severity to prior episodes. This started this evening before dinner while he was lying down. It started on the L face and slowly moved posteriorly over the scalp. It is intermittent and not reproducible by touch. It is not associated w/ n/v/phono or photophobia. It is not associated w/ dizziness, lightheadedness, or LOC. No eye tearing, runny nose, or paresthesia. Denies any focal neuro deficits Pt admits that stress tends to be associated with these headaches, and he is experiencing some extra stressors. He is changing blood thinners and having difficulty with his PCP. Past History - Travel History Traveled outside of the country in the last 30 days: No - Medical History Allergies/Adverse Reactions: Allergies Allergy/AdvReac Type Severity Reaction Status Date / Time No Known Allergies Allergy Verified 03/07/20 19:50 Home Medications: Ambulatory Orders Albuterol Sulfate Inhaler - [Ventolin Hfa Inhaler -] 1 - 2 inh IH QID PRN 06/02/18 Amlodipine Besylate [Norvasc -] 10 mg PO HS 06/02/18 Aspirin [ASA -] 81 mg PO DAILY 06/02/18 Atorvastatin Calcium [Lipitor] 10 mg PO HS 06/02/18 Enalapril Maleate [Vasotec -] 10 mg PO BID 06/02/18 Metoprolol Tartrate [Lopressor] 50 mg PO DAILY 06/02/18 Sennosides [Senna] 2 tab PO HS 06/02/18 Tamsulosin HCl [Flomax] 0.4 mg PO AM 06/02/18 Tizanidine HCl 2 mg PO TID PRN 06/02/18 Apixaban [Eliquis -] 5 mg PO BID #28 tablet 06/03/18 Budesonide/Formeterol Fumarate [SYMBICORT 80/4.5mcg -] 2 puff IH BID 06/03/18 Docusate Sodium [Colace] 2 - 3 cap PO HS 06/03/18 Ergocalciferol (Vitamin D2) [Vitamin D2] 50,000 unit PO WEEKLY 06/03/18 Folic Acid 1 mg PO DAILY 06/03/18 Insulin Degludec [Tresiba Flextouch U-200] 8 units SQ DAILY 06/03/18 Losartan Potassium 100 mg PO DAILY 06/03/18 Montelukast Sodium [Singulair] 10 mg PO HS 06/03/18 Oxycodone HCl/Acetaminophen [Percocet 10-325 mg Tablet] 325 mg PO BID 06/03/18 Zolpidem Tartrate [Ambien] 10 mg PO HS 06/03/18 levETIRAcetam [Keppra -] 500 mg PO BID #60 tablet 06/03/18 metFORMIN HCL [Metformin HCl ER] 500 mg PO DAILY 06/03/18 Cardiac Disorders: Yes (AFIB) COPD: Yes Diabetes: Yes Disorders: Yes (kidney disease) HTN: Yes Hypercholesterolemia: Yes - Immunization History Immunization Up to Date: Yes - Psycho-Social/Smoking History Smoking History: Current every day smoker Have you smoked in the past 12 months: Yes Number of Cigarettes Smoked Daily: 15 Information on smoking cessation initiated: Yes 'Breaking Loose' booklet given: 06/02/18 - Substance Abuse Hx (Audit-C & DAST Scrn) How often the patient has a drink containing alcohol: Never Score: In Men: 4 or > Positive; In Women: 3 or > Positive: 0 Screen Result (Pos requires Nsg. Audit-10AR): Negative Review of Systems - Review of Systems Able to Perform ROS?: Yes Is the patient limited Latvian proficient: No Constitutional: Yes: Weight Stable. No: Chills, Diaphoresis, Fever, Malaise, Night Sweats Respiratory: No: Cough, Orthopnea, Shortness of Breath, SOB with Exertion, SOB at Rest Cardiac (ROS): No: Chest Pain, Irregular Heart Rate, Lightheadedness, Palpitations, Syncope ABD/GI: No: Abdominal Distended, Constipated, Diarrhea, Nausea, Vomiting, Indigestion : No: Dysuria, Discharge, Hematuria Musculoskeletal: No: Back Pain, Muscle Pain, Neck Pain Integumentary: No: Bruising, Pallor, Rash Neurological: Yes: Headache. No: Numbness, Paresthesia, Pre-Existing Deficit, Seizure, Tingling, Tremors, Weakness, Unsteady Gait, Ataxia, Dizziness, Other Psychiatric: Yes: Anxiety, Other (endorses prior dx of paranoia and bipolar disorder) Endocrine: No: Increased Thirst *Physical Exam - Vital Signs Last Vital Signs Temp Pulse Resp BP Pulse Ox 98.3 F 55 L 20 168/85 96 03/07/20 19:20 03/07/20 19:20 03/07/20 19:20 03/07/20 19:20 03/07/20 19:20 - Physical Exam General Appearance: Yes: Nourished, Appropriately Dressed, Mild Distress. No: Apparent Distress HEENT: positive: EOMI. negative: Pharyngeal Erythema Neck: positive: Trachea midline, Supple. negative: Tender Respiratory/Chest: positive: Lungs Clear, Normal Breath Sounds. negative: Chest Tender, Respiratory Distress, Accessory Muscle Use Cardiovascular: positive: Regular Rhythm, Regular Rate, S1, S2. negative: Bradycardia, Tachycardia Gastrointestinal/Abdominal: positive: Normal Bowel Sounds, Soft Musculoskeletal: positive: Normal Inspection, Decreased Range of Motion. negative: CVA Tenderness Extremity: positive: Normal Capillary Refill, Normal Inspection, Normal Range of Motion. 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 negative: Abnormal Cranial NS, EOM Palsy, Facial Droop, Numbness, Sensory Deficit, Confused, Disoriented ED Treatment Course - LABORATORY CBC & Chemistry Diagram: 03/07/20 20:57 03/07/20 20:57 - ADDITIONAL ORDERS Additional order review: Laboratory Results 03/07/20 19:32 POC Glucometer 193 03/07/20 19:32 POC Glucometer 193 - Medications Given in the ED: ED Medications Discontinued Medications Generic Name Dose Route Start Last Admin Trade Name Aguilar PRN Reason Stop Dose Admin Acetaminophen 650 mg 03/07/20 20:41 03/07/20 20:46 Tylenol - PO 03/07/20 20:42 650 mg ONCE ONE Administration Medical Decision Making - Medical Decision Making 03/07/20 22:10 54yoM w/ PMHx headaches and AF and HTN and DM p/w headaches similar to ones he's had in the past. Normal neuro exam, no focal deficits, VS wnl, GUTIERREZ not progressing and is intermittent. Reported by patient to be same as prior HAs. 911 called by GF. no trauma -> Bleed less likely. CVA less likely. No hx of migraines and no photophobia. intermittent; comes and goes by the minute -> unlikely migraine No clustering of GUTIERREZ or hx of them -> unlikely cluster headaches. No CP, diaphoresis, n/v -> cardiac event less likely similar to prior episodes, has had prior CTs which were all negative. GUTIERREZ is intermittent, no focal deficits; normal neuro exam, no CP self-reported increase in stress -> tension GUTIERREZ most likely. will do CBC and CMP + PO tylenol then DC if labs are normal. labs wnl -> DC w/ neuro f/u. Discharge - Discharge Information Problems reviewed: Yes Clinical Impression/Diagnosis: Headache Qualifiers: Headache type: unspecified Headache chronicity pattern: chronic headache Intractability: intractable Qualified Code(s): R51 - Headache Disposition: HOME - Admission No - Follow up/Referral Referrals: Ney John MD [Primary Care Provider] - Devante Cantu MD [Non Staff, Medical] - Shayla Gil MD [Staff Physician] - - Patient Discharge Instructions Patient Printed Discharge Instructions: DI for High Blood Pressure, How to Monitor Your Blood Pressure at Home Additional Instructions: You came to the ED with a headache similar to the ones you've had in the past. We assessed you and tested your blood. We determined that you are safe to go home. Please follow up with the neurologist listed in this packet within 48hours of leaving the hospital today, and return to the ED with any severe or worsening symptoms. - Post Discharge Activity
[2020-03-07 21:52] LABS: ALBUMIN 3.8 g/dl (3.4-5.0); BILIRUBIN,TOTAL 0.5 mg/dL (0.2-1); BLOOD UREA NITROGEN 21.4 mg/dL (7-18); CALCIUM 8.9 mg/dL (8.5-10.1); CREATININE 1.7 mg/dL (0.55-1.3); POTASSIUM 4.1 mmol/L (3.5-5.1); TOT PROT 7.1 g/dl (6.4-8.2)
[2020-03-07 22:04] VITALS: BP 152/74; PULSE 52
--- NOTE | 2020-03-08 10:13 | EKG ---
Test Reason : Blood Pressure : / mmHG Vent. Rate : 059 BPM Atrial Rate : 059 BPM P-R Int : 152 ms QRS Dur : 094 ms QT Int : 426 ms P-R-T Axes : 048 050 089 degrees QTc Int : 421 ms SINUS BRADYCARDIA WITH PREMATURE ATRIAL COMPLEXES NONSPECIFIC ST AND T WAVE ABNORMALITY ABNORMAL ECG WHEN COMPARED WITH ECG OF 03-JUN-2018 12:01, PREMATURE ATRIAL COMPLEXES ARE NOW PRESENT Confirmed by KIRILL MCDOWELL MD ([id number]) on 03/08/2020 10:13:23 AM Referred By: Confirmed By:KIRILL MCDOWELL MD
== END 2020-03-07 22:12 | disposition home or self-care (01) ==
LOC: JER 18:59
DX: R51 Headache (principal)
CPT/HCPCS: 36415; 80053; 82962; 85025; 93005; 93010; 99284-25